=== PATIENT | female | born 1935 | race African-American/Black ===

== ENCOUNTER 2017-02-09 09:30 | Inpatient (IN) | payer MEDICARE, MEDICAID ==
[~2017-02-09] VITALS: Ht 157.5 cm; Wt 69.9 kg
[~2017-02-09 09:30] MED LIST: AMIT-188 GT; DIAZ10TA PO; DOCU-138 PO; ERGO2000 PO; ESOM40CA PO; LOSA25TA3 PO; ROSU10TA PO; SITA100T6 PO; TRAM50TA3 PO
[2017-02-09] MEDS ORDERED: ONDANSETRON HCL 4MG/2ML VIAL IV STA (09:40)
[2017-02-09] MEDS ORDERED: MORPHINE SULFATE 4 MG/ML CPJ (NOT FOR IM USE) IV STA (09:40)
[2017-02-09] MEDS ORDERED: SODIUM CHLORIDE 0.9% 500 ML IV ONE (09:48)
[2017-02-09 10:15] LABS: BASOPHILS % 0.4 % (0.0-2.0); EOSINOPHILS % 0.7 % (0.0-5.0); HEMATOCRIT. 40.9 % (36.0-48.0); HEMOGLOBIN. 13.6 g/dL (12.0-16.0); LYMPHOCYTES % 15.7 % (20.0-50.0); MEAN CORPUSCULAR HEMOGLOBIN 28.7 pg (28.0-32.0); MEAN CORPUSCULAR VOLUME 86.5 fL (81.0-99.0); MEAN PLATELET VOLUME 8.8 fl (7.4-10.4); MONOCYTES % 7.6 % (2.0-8.0); NEUTROPHILS % 75.6 % (40.0-76.0); PLATELET 233 x1000/uL (130-400); RED BLOOD CELL COUNT 4.73 mill/uL (4.2-5.4); RED CELL DISTRIBUTION WIDTH 14.4 % (11.6-14.6)
[2017-02-09 10:21] LABS: INR 1.1; PROTHROMBIN TIME 11.3 sec
[2017-02-09 10:32] LABS: CARBON DIOXIDE 25 mEq/L (21-32); CHLORIDE 101 mEq/L (98-107); TROPONIN I < 0.02 ng/mL (0.00-0.04)
[2017-02-09 12:30] VITALS: BP 131/62
[2017-02-09] MEDS ORDERED: DEXTROSE 50% WATER 50ML SYRINGE IV PRN (14:15)
[2017-02-09] MEDS: DEXT 5%/0.45% NACL 1000ML 1,000 ML IV SCH (15:50)
[2017-02-09 16:00] VITALS: BP 142/82
[2017-02-09] MEDS: KETOROLAC 15MG/ML VIAL IV PRN (16:02)
[2017-02-09] MEDS: BLOOD SUGAR DIAGNOSTIC STRIP TEST SCH ×2 (17:20→21:00)
[2017-02-09] MEDS: INSULIN LISPRO 100 UNITS/ML SUBCUT SCH ×2 (17:40→23:17)
[2017-02-09 20:00] VITALS: BP 102/66
[2017-02-09] MEDS ORDERED: KCL 20MEQ/100ML PREMIX 100 ML IV NR (20:00)
[2017-02-09 21:38] LABS: CLARITY URINE CLEAR (CLEAR); COLOR URINE DARK YELLOW (YELLOW); GLUCOSE URINE NEGATIVE (NEGATIVE); KETONES URINE NEGATIVE (NEGATIVE); LEUKOCYTE ESTERASE URINE NEGATIVE (NEGATIVE); NITRITE URINE NEGATIVE (NEGATIVE); OCCULT BLOOD URINE NEGATIVE (NEGATIVE); PH URINE 5.5 (4.5-8.0); PROTEIN URINE 1+ (NEGATIVE); SPECIFIC GRAVITY URINE 1.025 (1.005-1.030)
[2017-02-09] MEDS: ONDANSETRON HCL 4MG/2ML VIAL IV PRN (23:12)
[2017-02-10] VITALS: BP 115/60
[2017-02-10 04:00] VITALS: BP 145/84
[2017-02-10] MEDS: ONDANSETRON HCL 4MG/2ML VIAL IV PRN ×3 (06:05→19:53)
[2017-02-10] MEDS: KETOROLAC 15MG/ML VIAL IV PRN ×2 (06:05→19:53)
[2017-02-10] MEDS: BLOOD SUGAR DIAGNOSTIC STRIP TEST SCH ×4 (07:24→19:53)
[2017-02-10 07:45] LABS: BASOPHILS % 0.2 % (0.0-2.0); EOSINOPHILS % 0.3 % (0.0-5.0); HEMATOCRIT. 37.6 % (36.0-48.0); HEMOGLOBIN. 12.5 g/dL (12.0-16.0); LYMPHOCYTES % 13.5 % (20.0-50.0); MEAN CORPUSCULAR HEMOGLOBIN 28.7 pg (28.0-32.0); MEAN CORPUSCULAR VOLUME 86.6 fL (81.0-99.0); MEAN PLATELET VOLUME 9.3 fl (7.4-10.4); MONOCYTES % 8.5 % (2.0-8.0); NEUTROPHILS % 77.5 % (40.0-76.0); PLATELET 174 x1000/uL (130-400); RED BLOOD CELL COUNT 4.34 mill/uL (4.2-5.4); RED CELL DISTRIBUTION WIDTH 14.1 % (11.6-14.6)
[2017-02-10 08:00] VITALS: BP 133/77
[2017-02-10] MEDS: INSULIN LISPRO 100 UNITS/ML SUBCUT SCH ×4 (08:09→21:00)
[2017-02-10 08:25] LABS: AMYLASE 114 IU/L (25-115); CARBON DIOXIDE 26 mEq/L (21-32); CHLORIDE 101 mEq/L (98-107); HDL CHOLESTEROL 41 mg/dL (40-59); LDL CHOLESTEROL 96 mg/dL (5-100); TOTAL IRON BINDING CAPACITY 397 ug/dL (250-450)
[2017-02-10 08:33] LABS: T4 FREE 1.04 ng/dL (0.76-1.46)
[2017-02-10] MEDS: PANTOPRAZOLE SODIUM 40 MG/VIAL IV SCH (10:56)
[2017-02-10] MEDS: DEXT 5%/0.45% NACL 1000ML 1,000 ML IV SCH ×2 (10:58→11:40)
[2017-02-10 12:00] VITALS: BP 157/87
[2017-02-10 16:00] VITALS: BP 153/80
[2017-02-10 20:00] VITALS: BP 159/88
[2017-02-10] MEDS: LORAZEPAM 2MG/ML CPJ IV PRN (23:16)
[2017-02-11] VITALS: BP 134/66
[2017-02-11] MEDS: DEXT 5%/0.45% NACL 1000ML 1,000 ML IV SCH ×2 (01:01→07:40)
[2017-02-11 04:00] VITALS: BP 145/79
[2017-02-11 06:35] LABS: BASOPHILS % 0.4 % (0.0-2.0); EOSINOPHILS % 1.2 % (0.0-5.0); HEMATOCRIT. 35.6 % (36.0-48.0); HEMOGLOBIN. 11.9 g/dL (12.0-16.0); LYMPHOCYTES % 20.9 % (20.0-50.0); MEAN CORPUSCULAR VOLUME 87.1 fL (81.0-99.0); MEAN PLATELET VOLUME 8.8 fl (7.4-10.4); MONOCYTES % 10.2 % (2.0-8.0); NEUTROPHILS % 67.3 % (40.0-76.0); PLATELET 183 x1000/uL (130-400); RED BLOOD CELL COUNT 4.09 mill/uL (4.2-5.4); RED CELL DISTRIBUTION WIDTH 13.9 % (11.6-14.6)
[2017-02-11 06:57] LABS: CARBON DIOXIDE 26 mEq/L (21-32); CHLORIDE 103 mEq/L (98-107)
[2017-02-11 07:16] LABS: HEPATITIS B SURFACE ANTIGEN NEGATIVE
[2017-02-11] MEDS: BLOOD SUGAR DIAGNOSTIC STRIP TEST SCH ×4 (07:33→21:00)
[2017-02-11 07:44] LABS: HEPATITIS B CORE AB IGM NEGATIVE
[2017-02-11 07:45] LABS: HEPATITIS A AB IGM NEGATIVE (NEGATIVE)
[2017-02-11] MEDS: INSULIN LISPRO 100 UNITS/ML SUBCUT SCH ×4 (07:50→21:00)
[2017-02-11 08:00] VITALS: BP 148/80
[2017-02-11] MEDS ORDERED: MVI, ADULT NO.1 10 ML, FOLIC ACID 1 MG, THIAMINE HCL 100 MG in SODIUM CHLORIDE 0.9% 1,0... IV NR ×4 (10:00)
[2017-02-11] MEDS ORDERED: MAGNESIUM 4 G PREMIX 100 ML IV NR (10:00)
[2017-02-11] MEDS: KETOROLAC 15MG/ML VIAL IV PRN ×2 (10:41→22:55)
[2017-02-11] MEDS: PANTOPRAZOLE SODIUM 40 MG/VIAL IV SCH (10:43)
[2017-02-11 12:00] VITALS: BP 150/82
[2017-02-11] MEDS ORDERED: POTASSIUM PHOS,M-BASIC-D-BASIC 30 MMOL in DEXT 5% WATER 500 ML IV NR (14:00)
[2017-02-11] MEDS: LORAZEPAM 2MG/ML CPJ IV PRN (14:01)
[2017-02-11 16:00] VITALS: BP 140/85
[2017-02-11 20:00] VITALS: BP 156/81
[2017-02-11] MEDS: ONDANSETRON HCL 4MG/2ML VIAL IV PRN (22:55)
[2017-02-12] VITALS: BP 133/74
[2017-02-12] MEDS: DEXT 5%/0.45% NACL 1000ML 1,000 ML IV SCH ×3 (02:47→23:40)
[2017-02-12 04:00] VITALS: BP 157/71
[2017-02-12] MEDS: BLOOD SUGAR DIAGNOSTIC STRIP TEST SCH ×4 (06:44→21:00)
[2017-02-12] MEDS: INSULIN LISPRO 100 UNITS/ML SUBCUT SCH ×4 (06:46→22:06)
[2017-02-12 06:52] LABS: BASOPHILS % 0.3 % (0.0-2.0); EOSINOPHILS % 1.9 % (0.0-5.0); HEMATOCRIT. 35.9 % (36.0-48.0); HEMOGLOBIN. 11.8 g/dL (12.0-16.0); LYMPHOCYTES % 27.5 % (20.0-50.0); MEAN CORPUSCULAR HEMOGLOBIN 28.5 pg (28.0-32.0); MEAN CORPUSCULAR VOLUME 86.7 fL (81.0-99.0); MEAN PLATELET VOLUME 8.7 fl (7.4-10.4); MONOCYTES % 9.1 % (2.0-8.0); NEUTROPHILS % 61.2 % (40.0-76.0); PLATELET 176 x1000/uL (130-400); RED BLOOD CELL COUNT 4.14 mill/uL (4.2-5.4); RED CELL DISTRIBUTION WIDTH 13.9 % (11.6-14.6)
[2017-02-12 07:44] LABS: CARBON DIOXIDE 26 mEq/L (21-32); CHLORIDE 103 mEq/L (98-107); PHOSPHORUS 2.8 mg/dL (2.5-4.9)
[2017-02-12 08:00] VITALS: BP 163/69
[2017-02-12] MEDS: KETOROLAC 15MG/ML VIAL IV PRN ×2 (10:18→21:55)
[2017-02-12] MEDS: PANTOPRAZOLE SODIUM 40 MG/VIAL IV SCH (10:18)
[2017-02-12 12:00] VITALS: BP 156/81
[2017-02-12] MEDS: KCL 20MEQ/100ML PREMIX 100 ML IV SCH ×2 (14:02→18:59)
[2017-02-12 16:00] VITALS: BP 166/82
[2017-02-12 20:00] VITALS: BP 162/76
[2017-02-13] VITALS: BP 133/73
[2017-02-13 04:00] VITALS: BP 150/73
[2017-02-13] MEDS: BLOOD SUGAR DIAGNOSTIC STRIP TEST SCH ×4 (06:41→21:00)
[2017-02-13 08:00] VITALS: BP 141/73
[2017-02-13] MEDS: PANTOPRAZOLE SODIUM 40 MG/VIAL IV SCH (08:08)
[2017-02-13] MEDS: INSULIN LISPRO 100 UNITS/ML SUBCUT SCH ×4 (08:13→21:00)
[2017-02-13] MEDS: DEXT 5%/0.45% NACL 1000ML 1,000 ML IV SCH (08:19)
[2017-02-13 12:00] VITALS: BP 149/75
[2017-02-13 16:00] VITALS: BP 140/70
[2017-02-13 20:00] VITALS: BP 154/87
[2017-02-13] MEDS: KETOROLAC 15MG/ML VIAL IV PRN (22:41)
[2017-02-14] VITALS: BP 168/78
[2017-02-14 04:00] VITALS: BP 148/88
[2017-02-14] MEDS: DEXT 5%/0.45% NACL 1000ML 1,000 ML IV SCH (05:44)
[2017-02-14 08:00] VITALS: BP 170/86
[2017-02-14] MEDS: BLOOD SUGAR DIAGNOSTIC STRIP TEST SCH ×3 (08:02→12:44)
[2017-02-14] MEDS: INSULIN LISPRO 100 UNITS/ML SUBCUT SCH ×2 (08:56→12:50)
[2017-02-14] MEDS: LORAZEPAM 2MG/ML CPJ IV PRN (08:57)
[2017-02-14] MEDS ORDERED: FAMOTIDINE 20MG/2ML VIAL IV SCH (09:00)
[2017-02-14 12:00] VITALS: BP 161/95
[2017-02-14 16:00] VITALS: BP 163/90
[2017-02-14 16:08] VITALS: BP 161/95
== END 2017-02-14 16:35 | disposition home or self-care (01) | DRG 390 ==
LOC: ER 09:43 → EDBEDREQ 09:45 → 6EST 10:42 → EDBEDREQ 10:46 → ENRESERV 10:55 → ER 12:21
PROVIDERS: ADMIT Specialist; ATTEND Specialist
PROC: 0D9670Z Drainage of Stomach with Drainage Device, Via Natural or Artificial Opening (ICD-10-PCS; principal; 2017-02-10)
PROC: 02HV33Z Insertion of Infusion Device into Superior Vena Cava, Percutaneous Approach (ICD-10-PCS; 2017-02-12)
PROC: B5181ZA Fluoroscopy of Superior Vena Cava using Low Osmolar Contrast, Guidance (ICD-10-PCS; 2017-02-12)
PROC: B548ZZA Ultrasonography of Superior Vena Cava, Guidance (ICD-10-PCS; 2017-02-12)
DX: K56.5 Intestinal adhesions [bands] with obstruction (postinfection) (principal); K56.0 Paralytic ileus; K66.0 Peritoneal adhesions (postprocedural) (postinfection); F41.1 Generalized anxiety disorder; E86.0 Dehydration; K57.90 Diverticulosis of intestine, part unspecified, without perforation or abscess without bleeding; E11.9 Type 2 diabetes mellitus without complications; I11.9 Hypertensive heart disease without heart failure; Z96.653 Presence of artificial knee joint, bilateral; F32.9 Major depressive disorder, single episode, unspecified; M19.90 Unspecified osteoarthritis, unspecified site; Z90.710 Acquired absence of both cervix and uterus; Z85.3 Personal history of malignant neoplasm of breast; Z95.0 Presence of cardiac pacemaker; Z88.8 Allergy status to other drugs, medicaments and biological substances; Z79.84 Long term (current) use of oral hypoglycemic drugs; Z88.5 Allergy status to narcotic agent; Z90.49 Acquired absence of other specified parts of digestive tract; Z79.899 Other long term (current) drug therapy; Z88.6 Allergy status to analgesic agent; E87.6 Hypokalemia
CPT/HCPCS: 36415; 36569; 71010; 74000; 74176; 76937; 77001; 80053; 80061; 80069; 80076; 81001; 82150; 82248; 82378; 82962; 83036; 83540; 83550; 83605; 83690; 83735; 83880; 84100; 84439; 84443; 84484; 84550; 85025; 85610; 85651; 86705; 86709; 86803; 87040; 87086; 87340; 93005; 93970; 96361; 96374; 96375; 99291; C1725; C1893; C9113; J1815; J1885; J2060; J2405; J3411; J3475; J3480; J3490; J7030; J7040; J7060; A4315

== ENCOUNTER 2017-03-06 08:24 | Inpatient (IN) | payer MEDICARE, MEDICAID ==
[~2017-03-06] VITALS: Ht 152.4 cm; Wt 64.9 kg
[~2017-03-06 08:24] MED LIST changes: +IOHEXOL-300 100 ML BOTTLE ONE; +SITA100T11 PO; -SITA100T6 PO; +SODIUM CHLORIDE 0.9% 10ML VIAL ONE
[2017-03-06] MEDS ORDERED: MORPHINE SULFATE 4 MG/ML CPJ (NOT FOR IM USE) IV STA (08:38)
[2017-03-06] MEDS ORDERED: SODIUM CHLORIDE 0.9% 1,000 ML IV ONE (08:38)
[2017-03-06] MEDS ORDERED: ONDANSETRON HCL 4MG/2ML VIAL IV STA (08:38)
[2017-03-06 08:57] LABS: BASOPHILS % 0.4 % (0.0-2.0); EOSINOPHILS % 0.3 % (0.0-5.0); HEMATOCRIT. 39.2 % (36.0-48.0); LYMPHOCYTES % 9.7 % (20.0-50.0); MEAN CORPUSCULAR HEMOGLOBIN 28.6 pg (28.0-32.0); MEAN CORPUSCULAR VOLUME 86.1 fL (81.0-99.0); MEAN PLATELET VOLUME 8.5 fl (7.4-10.4); MONOCYTES % 3.7 % (2.0-8.0); NEUTROPHILS % 85.9 % (40.0-76.0); PLATELET 242 x1000/uL (130-400); RED BLOOD CELL COUNT 4.56 mill/uL (4.2-5.4); RED CELL DISTRIBUTION WIDTH 14.9 % (11.6-14.6)
[2017-03-06 09:05] LABS: INR 1.1; PROTHROMBIN TIME 11.2 sec (9.4-11.6)
[2017-03-06 09:15] LABS: CARBON DIOXIDE 26 mEq/L (21-32); CHLORIDE 101 mEq/L (98-107); TROPONIN I < 0.02 ng/mL (0.00-0.04)
[2017-03-06] MEDS ORDERED: KCL 20MEQ/100ML PREMIX 100 ML IV ONE (11:30)
[2017-03-06 12:07] LABS: CLARITY URINE CLEAR (CLEAR); COLOR URINE YELLOW (YELLOW); GLUCOSE URINE NEGATIVE (NEGATIVE); KETONES URINE NEGATIVE (NEGATIVE); LEUKOCYTE ESTERASE URINE 1+ (NEGATIVE); NITRITE URINE POSITIVE (NEGATIVE); OCCULT BLOOD URINE TRACE (NEGATIVE); PROTEIN URINE TRACE (NEGATIVE); SPECIFIC GRAVITY URINE 1.084 (1.005-1.030)
[2017-03-06] MEDS ORDERED: ONDANSETRON HCL 4MG/2ML VIAL IV ONE (14:00)
[2017-03-06 15:05] VITALS: BP 149/72
[2017-03-06 15:46] VITALS: BP 149/72
[2017-03-06] MEDS ORDERED: LABETALOL 5MG/ML SYR 20 MG/4 ML SYRINGE IV PRN (16:45)
[2017-03-06] MEDS ORDERED: DEXTROSE 50% WATER 50ML SYRINGE IV PRN (16:45)
[2017-03-06] MEDS: BLOOD SUGAR DIAGNOSTIC STRIP TEST SCH ×2 (17:00→20:10)
[2017-03-06] MEDS: INSULIN LISPRO 100 UNITS/ML SUBCUT SCH ×2 (18:20→20:20)
[2017-03-06 20:00] VITALS: BP 154/72
[2017-03-06] MEDS: DEXT 5%/0.45% NACL KCL 20MEQ/L 1,000 ML IV SCH (20:00)
[2017-03-06] MEDS: KETOROLAC 15MG/ML VIAL IV PRN (20:01)
[2017-03-07] VITALS: BP 148/70
[2017-03-07] MEDS: LEVOFLOXACIN 500MG PREMIX 100 ML IV SCH (05:37)
[2017-03-07 06:00] VITALS: BP 151/73
[2017-03-07] MEDS: BLOOD SUGAR DIAGNOSTIC STRIP TEST SCH ×4 (06:05→20:45)
[2017-03-07] MEDS: KETOROLAC 15MG/ML VIAL IV PRN ×3 (06:22→23:21)
[2017-03-07] MEDS: INSULIN LISPRO 100 UNITS/ML SUBCUT SCH ×4 (06:22→20:51)
[2017-03-07 06:25] LABS: BASOPHILS % 0.3 % (0.0-2.0); EOSINOPHILS % 1.7 % (0.0-5.0); HEMATOCRIT. 32.9 % (36.0-48.0); HEMOGLOBIN. 10.9 g/dL (12.0-16.0); LYMPHOCYTES % 32.8 % (20.0-50.0); MEAN CORPUSCULAR HEMOGLOBIN 28.8 pg (28.0-32.0); MEAN CORPUSCULAR VOLUME 86.6 fL (81.0-99.0); MEAN PLATELET VOLUME 8.6 fl (7.4-10.4); MONOCYTES % 7.5 % (2.0-8.0); NEUTROPHILS % 57.7 % (40.0-76.0); PLATELET 180 x1000/uL (130-400); RED CELL DISTRIBUTION WIDTH 14.9 % (11.6-14.6)
[2017-03-07 06:43] LABS: AMYLASE 50 IU/L (25-115); CHLORIDE 103 mEq/L (98-107)
[2017-03-07 07:05] LABS: CARBON DIOXIDE 30 mEq/L (21-32)
[2017-03-07 08:00] VITALS: BP_SYST 102; BP_SYST 121; BP_DIAS 79; BP_DIAS 84
[2017-03-07 08:59] LABS: *AMPHETAMINES SCREEN URINE NEGATIVE (NEGATIVE); *BARBITURATES SCREEN URINE NEGATIVE (NEGATIVE); *BENZODIAZEPINES SCREEN URINE PRESUMTIVE POSITIVE (NEGATIVE); *COCAINE SCREEN URINE NEGATIVE (NEGATIVE); CANNABINOID URINE SCREEN NEGATIVE (NEGATIVE); METHADONE URINE SCREEN NEGATIVE (NEGATIVE); OPIATES URINE SCREEN PRESUMTIVE POSITIVE (NEGATIVE); PHENCYCLIDINE URINE SCREEN NEGATIVE (NEGATIVE)
[2017-03-07] MEDS: PANTOPRAZOLE SODIUM 40 MG/VIAL IV SCH (10:11)
[2017-03-07 12:00] VITALS: BP 147/71
[2017-03-07] MEDS: DEXT 5%/0.45% NACL KCL 20MEQ/L 1,000 ML IV SCH (14:34)
[2017-03-07 16:00] VITALS: BP 146/62
[2017-03-07 20:00] VITALS: BP 160/72
[2017-03-08] VITALS: BP 155/62
[2017-03-08] MEDS: LEVOFLOXACIN 500MG PREMIX 100 ML IV SCH (01:16)
[2017-03-08] MEDS: LORAZEPAM 2MG/ML CPJ IV PRN (01:24)
[2017-03-08 04:00] VITALS: BP 159/80
[2017-03-08] MEDS: DEXT 5%/0.45% NACL KCL 20MEQ/L 1,000 ML IV SCH ×2 (05:32→12:56)
[2017-03-08] MEDS: INSULIN LISPRO 100 UNITS/ML SUBCUT SCH ×4 (06:46→21:00)
[2017-03-08] MEDS: BLOOD SUGAR DIAGNOSTIC STRIP TEST SCH ×4 (06:46→21:34)
[2017-03-08 08:00] VITALS: BP 158/81
[2017-03-08] MEDS: PANTOPRAZOLE SODIUM 40 MG/VIAL IV SCH (09:32)
[2017-03-08] MEDS: ONDANSETRON HCL 4MG/2ML VIAL IV PRN (09:32)
[2017-03-08 16:00] VITALS: BP 148/76
[2017-03-08 20:00] VITALS: BP 157/78
[2017-03-09] VITALS: BP 149/79
[2017-03-09] MEDS: LEVOFLOXACIN 500MG PREMIX 100 ML IV SCH (01:46)
[2017-03-09] MEDS: DEXT 5%/0.45% NACL KCL 20MEQ/L 1,000 ML IV SCH (01:46)
[2017-03-09 04:00] VITALS: BP 149/79
[2017-03-09] MEDS: BLOOD SUGAR DIAGNOSTIC STRIP TEST SCH ×4 (06:52→21:13)
[2017-03-09] MEDS: ONDANSETRON HCL 4MG/2ML VIAL IV PRN (06:53)
[2017-03-09] MEDS: INSULIN LISPRO 100 UNITS/ML SUBCUT SCH ×4 (06:57→21:00)
[2017-03-09] MEDS: FAMOTIDINE 20MG/2ML VIAL IV SCH (08:26)
[2017-03-09 08:37] VITALS: BP 137/72
[2017-03-09 12:00] VITALS: BP 171/79
[2017-03-09 16:00] VITALS: BP 149/63
[2017-03-09] MEDS ORDERED: AMLO10TA4 PO (16:21)
[2017-03-09 20:00] VITALS: BP 139/72
[2017-03-10] VITALS: BP 141/67
[2017-03-10] MEDS: LEVOFLOXACIN 500MG PREMIX 100 ML IV SCH (02:15)
[2017-03-10 04:00] VITALS: BP 108/63
[2017-03-10 04:44] LABS: CLARITY URINE CLEAR (CLEAR); COLOR URINE YELLOW (YELLOW); GLUCOSE URINE NEGATIVE (NEGATIVE); KETONES URINE NEGATIVE (NEGATIVE); LEUKOCYTE ESTERASE URINE TRACE (NEGATIVE); NITRITE URINE NEGATIVE (NEGATIVE); OCCULT BLOOD URINE NEGATIVE (NEGATIVE); PROTEIN URINE NEGATIVE (NEGATIVE); SPECIFIC GRAVITY URINE 1.008 (1.005-1.030)
[2017-03-10] MEDS: BLOOD SUGAR DIAGNOSTIC STRIP TEST SCH ×4 (06:09→21:33)
[2017-03-10] MEDS: INSULIN LISPRO 100 UNITS/ML SUBCUT SCH ×4 (06:09→21:00)
[2017-03-10] MEDS: LORAZEPAM 2MG/ML CPJ IV PRN ×2 (06:10→23:18)
[2017-03-10 06:24] LABS: BASOPHILS % 0.4 % (0.0-2.0); HEMATOCRIT. 37.7 % (36.0-48.0); HEMOGLOBIN. 12.6 g/dL (12.0-16.0); LYMPHOCYTES % 33.2 % (20.0-50.0); MEAN CORPUSCULAR HEMOGLOBIN 28.6 pg (28.0-32.0); MEAN CORPUSCULAR VOLUME 85.9 fL (81.0-99.0); MEAN PLATELET VOLUME 8.3 fl (7.4-10.4); MONOCYTES % 9.6 % (2.0-8.0); NEUTROPHILS % 54.8 % (40.0-76.0); PLATELET 202 x1000/uL (130-400); RED BLOOD CELL COUNT 4.39 mill/uL (4.2-5.4); RED CELL DISTRIBUTION WIDTH 15.1 % (11.6-14.6)
[2017-03-10] MEDS ORDERED: KETOROLAC 15MG/ML VIAL IV PRN (07:15)
[2017-03-10 07:18] LABS: CARBON DIOXIDE 28 mEq/L (21-32); CHLORIDE 101 mEq/L (98-107); PHOSPHORUS 3.7 mg/dL (2.5-4.9)
[2017-03-10 07:19] VITALS: BP 160/84
[2017-03-10] MEDS ORDERED: LOSARTAN POTASSIUM 25 MG TABLET PO SCH (09:00)
[2017-03-10] MEDS: FAMOTIDINE 20MG/2ML VIAL IV SCH (09:08)
[2017-03-10] MEDS: AMLODIPINE 10MG TABLET PO SCH (09:09)
[2017-03-10] MEDS ORDERED: MAGNESIUM 4 G PREMIX 100 ML IV SCH (11:00)
[2017-03-10] MEDS ORDERED: POTASSIUM BICARB/CIT ACID 25 MEQ TABLET.EFF PO SCH (11:00)
[2017-03-10 11:40] VITALS: BP 172/74
[2017-03-10] MEDS ORDERED: FUROSEMIDE 20MG/2ML VIAL IVP SCH (13:15)
[2017-03-10 15:15] VITALS: BP 135/69
[2017-03-10 20:00] VITALS: BP 155/81
[2017-03-10] MEDS: LOSARTAN POTASSIUM 50 MG TABLET PO SCH (21:35)
[2017-03-11] VITALS: BP 115/73
[2017-03-11 04:00] VITALS: BP 116/61
[2017-03-11] MEDS: LEVOFLOXACIN 250MG PREMIX 50 ML IV SCH (05:36)
[2017-03-11] MEDS: INSULIN LISPRO 100 UNITS/ML SUBCUT SCH ×4 (05:41→21:00)
[2017-03-11] MEDS: BLOOD SUGAR DIAGNOSTIC STRIP TEST SCH ×4 (05:41→21:01)
[2017-03-11] MEDS ORDERED: BISACODYL 10MG SUPP PR PRN (06:15)
[2017-03-11 06:29] LABS: BASOPHILS % 0.6 % (0.0-2.0); EOSINOPHILS % 1.3 % (0.0-5.0); HEMATOCRIT. 37.3 % (36.0-48.0); HEMOGLOBIN. 12.4 g/dL (12.0-16.0); LYMPHOCYTES % 24.8 % (20.0-50.0); MEAN CORPUSCULAR HEMOGLOBIN 28.5 pg (28.0-32.0); MEAN CORPUSCULAR VOLUME 86.1 fL (81.0-99.0); MEAN PLATELET VOLUME 8.6 fl (7.4-10.4); NEUTROPHILS % 65.3 % (40.0-76.0); PLATELET 215 x1000/uL (130-400); RED BLOOD CELL COUNT 4.34 mill/uL (4.2-5.4); RED CELL DISTRIBUTION WIDTH 14.9 % (11.6-14.6)
[2017-03-11 06:45] LABS: CARBON DIOXIDE 28 mEq/L (21-32); CHLORIDE 96 mEq/L (98-107); PHOSPHORUS 3.9 mg/dL (2.5-4.9)
[2017-03-11] MEDS ORDERED: BISACODYL 10MG SUPP PR SCH (07:00)
[2017-03-11 08:00] VITALS: BP 116/45
[2017-03-11] MEDS: FAMOTIDINE 20MG/2ML VIAL IV SCH (08:58)
[2017-03-11] MEDS: AMLODIPINE 10MG TABLET PO SCH (08:59)
[2017-03-11] MEDS: LOSARTAN POTASSIUM 50 MG TABLET PO SCH ×2 (08:59→20:58)
[2017-03-11 12:00] VITALS: BP 121/56
[2017-03-11] MEDS: BISACODYL 10MG SUPP PR SCH ×2 (12:00→16:00)
[2017-03-11 16:00] VITALS: BP 117/66
[2017-03-11 20:00] VITALS: BP 145/78
[2017-03-11] MEDS ORDERED: POTASSIUM BICARB/CIT ACID 25 MEQ TABLET.EFF PO NR ×2 (20:00→23:59)
[2017-03-11] MEDS: LORAZEPAM 2MG/ML CPJ IV PRN (21:44)
[2017-03-12] VITALS: BP 121/63
[2017-03-12 04:00] VITALS: BP 110/62
[2017-03-12] MEDS: LEVOFLOXACIN 250MG PREMIX 50 ML IV SCH (05:59)
[2017-03-12] MEDS: BLOOD SUGAR DIAGNOSTIC STRIP TEST SCH ×4 (06:05→21:27)
[2017-03-12] MEDS: INSULIN LISPRO 100 UNITS/ML SUBCUT SCH ×3 (06:43→17:15)
[2017-03-12] MEDS: ONDANSETRON HCL 4MG/2ML VIAL IV PRN (06:49)
[2017-03-12 08:10] VITALS: BP 125/52
[2017-03-12] MEDS: AMLODIPINE 10MG TABLET PO SCH (09:00)
[2017-03-12] MEDS: LOSARTAN POTASSIUM 50 MG TABLET PO SCH ×2 (09:01→21:07)
[2017-03-12] MEDS: FAMOTIDINE 20MG/2ML VIAL IV SCH (09:01)
[2017-03-12] MEDS: LORAZEPAM 2MG/ML CPJ IV PRN ×2 (09:56→21:59)
[2017-03-12 12:00] VITALS: BP 110/67
[2017-03-12 16:00] VITALS: BP 134/74
[2017-03-13] MEDS: LEVOFLOXACIN 250MG PREMIX 50 ML IV SCH (06:51)
[2017-03-13 08:00] VITALS: BP 138/73
[2017-03-13] MEDS: LOSARTAN POTASSIUM 50 MG TABLET PO SCH ×2 (09:16→20:29)
[2017-03-13] MEDS: AMLODIPINE 10MG TABLET PO SCH (09:16)
[2017-03-13] MEDS: FAMOTIDINE 20MG/2ML VIAL IV SCH (09:16)
[2017-03-13] MEDS: INSULIN LISPRO 100 UNITS/ML SUBCUT SCH ×3 (11:20→20:33)
[2017-03-13] MEDS: BLOOD SUGAR DIAGNOSTIC STRIP TEST SCH ×3 (11:20→20:29)
[2017-03-13 12:00] VITALS: BP 136/81
[2017-03-13 15:48] VITALS: BP 128/77
[2017-03-13 20:00] VITALS: BP 133/69
[2017-03-13] MEDS: LORAZEPAM 2MG/ML CPJ IV PRN (21:56)
[2017-03-14] VITALS: BP 118/66
[2017-03-14 04:00] VITALS: BP 140/65
[2017-03-14] MEDS: BLOOD SUGAR DIAGNOSTIC STRIP TEST SCH ×2 (05:56→11:26)
[2017-03-14] MEDS: LEVOFLOXACIN 250MG PREMIX 50 ML IV SCH (05:56)
[2017-03-14] MEDS: INSULIN LISPRO 100 UNITS/ML SUBCUT SCH ×2 (06:00→11:26)
[2017-03-14 06:25] LABS: CARBON DIOXIDE 29 mEq/L (21-32); CHLORIDE 98 mEq/L (98-107); PHOSPHORUS 3.8 mg/dL (2.5-4.9)
[2017-03-14 06:29] LABS: BASOPHILS % 0.5 % (0.0-2.0); EOSINOPHILS % 2.3 % (0.0-5.0); HEMATOCRIT. 38.5 % (36.0-48.0); HEMOGLOBIN. 12.6 g/dL (12.0-16.0); LYMPHOCYTES % 42.8 % (20.0-50.0); MEAN CORPUSCULAR HEMOGLOBIN 28.5 pg (28.0-32.0); MEAN PLATELET VOLUME 8.6 fl (7.4-10.4); NEUTROPHILS % 44.4 % (40.0-76.0); PLATELET 197 x1000/uL (130-400); RED BLOOD CELL COUNT 4.43 mill/uL (4.2-5.4); RED CELL DISTRIBUTION WIDTH 14.9 % (11.6-14.6)
[2017-03-14 07:55] VITALS: BP 152/71
[2017-03-14] MEDS: LOSARTAN POTASSIUM 50 MG TABLET PO SCH (09:13)
[2017-03-14] MEDS: AMLODIPINE 10MG TABLET PO SCH (09:14)
[2017-03-14] MEDS: FAMOTIDINE 20MG/2ML VIAL IV SCH (09:14)
[2017-03-14 11:32] VITALS: BP 142/73
[2017-03-14 12:00] VITALS: BP 139/72
[2017-03-14] MEDS ORDERED: POTASSIUM BICARB/CIT ACID 25 MEQ TABLET.EFF PO SCH (12:30)
== END 2017-03-14 13:00 | disposition home health service (06) | DRG 389 ==
LOC: ER 08:24 → 5WST 11:21 → EDBEDREQ 11:22 → ENRESERV 11:45
PROVIDERS: ADMIT Internal Medicine; ATTEND Internal Medicine
DX: K56.5 Intestinal adhesions [bands] with obstruction (postinfection) (principal); N39.0 Urinary tract infection, site not specified; I11.9 Hypertensive heart disease without heart failure; R16.0 Hepatomegaly, not elsewhere classified; E11.9 Type 2 diabetes mellitus without complications; E87.6 Hypokalemia; Z96.659 Presence of unspecified artificial knee joint; M19.90 Unspecified osteoarthritis, unspecified site; R63.4 Abnormal weight loss; F32.9 Major depressive disorder, single episode, unspecified; F41.0 Panic disorder [episodic paroxysmal anxiety]; I25.10 Atherosclerotic heart disease of native coronary artery without angina pectoris; K57.30 Diverticulosis of large intestine without perforation or abscess without bleeding; Z79.899 Other long term (current) drug therapy; Z85.3 Personal history of malignant neoplasm of breast; Z90.49 Acquired absence of other specified parts of digestive tract; Z90.710 Acquired absence of both cervix and uterus; Z79.84 Long term (current) use of oral hypoglycemic drugs; Z88.8 Allergy status to other drugs, medicaments and biological substances; Z88.6 Allergy status to analgesic agent; Z68.27 Body mass index [BMI] 27.0-27.9, adult
CPT/HCPCS: 36415; 71010; 74000; 74177; 80048; 80053; 80069; 80305; 81001; 82150; 82248; 82962; 83690; 83735; 83880; 84100; 84443; 84484; 84550; 85025; 85610; 85651; 87077; 87086; 87186; 93005; 93970; 96374; 96375; 99285; A4216; A6261; C1893; C9113; J1885; J1940; J1956; J2060; J2270; J2405; J3475; J3480; J3490; J7030; J7050; Q9967

== ENCOUNTER 2017-04-16 10:32 | Inpatient (IN) | payer MEDICARE, MEDICAID ==
[~2017-04-16] VITALS: Ht 162.6 cm; Wt 68.0 kg
[~2017-04-16 10:32] MED LIST changes: +AMLO10TA4 PO; -IOHEXOL-300 100 ML BOTTLE ONE; -SODIUM CHLORIDE 0.9% 10ML VIAL ONE
[2017-04-16] MEDS ORDERED: MORPHINE SULFATE 4 MG/ML CPJ (NOT FOR IM USE) IV STA (11:06)
[2017-04-16] MEDS ORDERED: ONDANSETRON HCL 4MG/2ML VIAL IV STA (11:06)
[2017-04-16] MEDS ORDERED: SODIUM CHLORIDE 0.9% 1,000 ML IV ONE (11:06)
[2017-04-16 11:33] LABS: BASOPHILS % 0.7 % (0.0-2.0); EOSINOPHILS % 1.6 % (0.0-5.0); HEMATOCRIT. 35.6 % (36.0-48.0); HEMOGLOBIN. 11.8 g/dL (12.0-16.0); LYMPHOCYTES % 24.7 % (20.0-50.0); MEAN CORPUSCULAR HEMOGLOBIN 28.5 pg (28.0-32.0); MEAN PLATELET VOLUME 8.2 fl (7.4-10.4); MONOCYTES % 6.2 % (2.0-8.0); NEUTROPHILS % 66.8 % (40.0-76.0); PLATELET 235 x1000/uL (130-400); RED BLOOD CELL COUNT 4.14 mill/uL (4.2-5.4); RED CELL DISTRIBUTION WIDTH 14.7 % (11.6-14.6)
[2017-04-16 11:42] LABS: INR 1.1; PARTIAL THROMBOPLASTIN TIME 30.1 sec (23.4-31.0); PROTHROMBIN TIME 11.4 sec (9.4-11.6)
[2017-04-16 11:49] LABS: CARBON DIOXIDE 31 mEq/L (21-32); CHLORIDE 102 mEq/L (98-107); TROPONIN I < 0.02 ng/mL (0.00-0.04)
[2017-04-16 13:15] LABS: CLARITY URINE CLEAR (CLEAR); COLOR URINE YELLOW (YELLOW); GLUCOSE URINE NEGATIVE (NEGATIVE); KETONES URINE NEGATIVE (NEGATIVE); LEUKOCYTE ESTERASE URINE 2+ (NEGATIVE); NITRITE URINE NEGATIVE (NEGATIVE); OCCULT BLOOD URINE NEGATIVE (NEGATIVE); PROTEIN URINE NEGATIVE (NEGATIVE); SPECIFIC GRAVITY URINE 1.012 (1.005-1.030); UROBILINOGEN URINE 0.2 E.U./dL (0.2-1.0)
[2017-04-16] MEDS ORDERED: MORPHINE SULFATE 2 MG/ML CPJ (NOT FOR IM USE) IV PRN (18:00)
[2017-04-16] MEDS ORDERED: MAGNESIUM HYDROXIDE 400MG/5ML 30ML UDC PO PRN (18:00)
[2017-04-16] MEDS ORDERED: ACETAMINOPHEN 325MG TABLET PO PRN (18:00)
[2017-04-16] MEDS ORDERED: ERGOCALCIFEROL PO SCH (18:15)
[2017-04-16] MEDS ORDERED: DOCUSATE SODIUM 100MG CAPSULE PO PRN (18:15)
[2017-04-16] MEDS ORDERED: DIAZEPAM 10 MG PO PRN (18:15)
[2017-04-16] MEDS ORDERED: TRAMADOL 50MG TABLET PO PRN (18:15)
[2017-04-16] MEDS ORDERED: DEXTROSE 50% WATER 50ML SYRINGE IV PRN (18:15)
[2017-04-16] MEDS ORDERED: DIAZEPAM 5 MG TABLET PO PRN (18:30)
[2017-04-16 18:41] VITALS: BP 150/72
[2017-04-16] MEDS: AMLODIPINE 10MG TABLET PO SCH (19:35)
[2017-04-16] MEDS: LOSARTAN POTASSIUM 25 MG TABLET PO SCH (19:35)
[2017-04-16 20:05] VITALS: BP 111/51
[2017-04-16] MEDS: BLOOD SUGAR DIAGNOSTIC STRIP TEST SCH (20:55)
[2017-04-16] MEDS: ATORVASTATIN CALCIUM 20MG TABLET PO SCH (20:56)
[2017-04-16] MEDS: AMITRIPTYLINE 50MG TABLET GT SCH (20:57)
[2017-04-16] MEDS ORDERED: MEDICATION NOT ON FORMULARY EA (Sitagliptin Phosphate (Januvia) 100 MG) PO SCH (21:00)
[2017-04-16] MEDS ORDERED: MEDICATION NOT ON FORMULARY EA (Rosuvastatin Calcium (Crestor) 10 MG) PO SCH (21:00)
[2017-04-16] MEDS: INSULIN LISPRO 100 UNITS/ML SUBCUT SCH (21:17)
[2017-04-16] MEDS: MORPHINE SULFATE 4 MG/ML CPJ (NOT FOR IM USE) IV PRN (21:56)
[2017-04-17 00:11] VITALS: BP 133/62
[2017-04-17 04:22] VITALS: BP 139/64
[2017-04-17] MEDS: BLOOD SUGAR DIAGNOSTIC STRIP TEST SCH ×4 (07:45→21:47)
[2017-04-17 07:46] VITALS: BP 140/59
[2017-04-17] MEDS: INSULIN LISPRO 100 UNITS/ML SUBCUT SCH ×5 (07:50→21:56)
[2017-04-17] MEDS ORDERED: MEDICATION NOT ON FORMULARY EA (Esomeprazole Mag Trihydrate (Nexium) 40 MG) PO SCH (09:00)
[2017-04-17] MEDS: LOSARTAN POTASSIUM 25 MG TABLET PO SCH (10:27)
[2017-04-17] MEDS: AMLODIPINE 10MG TABLET PO SCH (10:28)
[2017-04-17] MEDS: FAMOTIDINE 20MG TABLET PO SCH (10:28)
[2017-04-17] MEDS: MORPHINE SULFATE 4 MG/ML CPJ (NOT FOR IM USE) IV PRN (10:29)
[2017-04-17] MEDS: LINAGLIPTIN 5MG TABLET PO SCH (11:08)
[2017-04-17 12:19] VITALS: BP 138/65
[2017-04-17 15:20] VITALS: BP 98/50
[2017-04-17 20:43] VITALS: BP 121/54
[2017-04-17] MEDS: ATORVASTATIN CALCIUM 20MG TABLET PO SCH (21:49)
[2017-04-17] MEDS: AMITRIPTYLINE 50MG TABLET GT SCH (21:56)
[2017-04-18] VITALS (8 sets, daily range): BP systolic 122–138; BP diastolic 64–80
[2017-04-18] MEDS: BLOOD SUGAR DIAGNOSTIC STRIP TEST SCH ×4 (06:16→21:42)
[2017-04-18] MEDS: FAMOTIDINE 20MG TABLET PO SCH (08:24)
[2017-04-18] MEDS: AMLODIPINE 10MG TABLET PO SCH (08:25)
[2017-04-18] MEDS: LINAGLIPTIN 5MG TABLET PO SCH (08:25)
[2017-04-18] MEDS: LOSARTAN POTASSIUM 25 MG TABLET PO SCH (08:25)
[2017-04-18] MEDS: DIPHENHYDRAMINE 25MG CAPSULE PO PRN (08:28)
[2017-04-18] MEDS: INSULIN LISPRO 100 UNITS/ML SUBCUT SCH ×3 (11:40→21:00)
[2017-04-18] MEDS: AMITRIPTYLINE 50MG TABLET GT SCH (21:26)
[2017-04-18] MEDS: ATORVASTATIN CALCIUM 20MG TABLET PO SCH (21:26)
[2017-04-18] MEDS: MORPHINE SULFATE 4 MG/ML CPJ (NOT FOR IM USE) IV PRN (21:28)
[2017-04-19] VITALS: BP 109/50
[2017-04-19] MEDS: DIPHENHYDRAMINE 25MG CAPSULE PO PRN (00:26)
[2017-04-19 04:00] VITALS: BP 134/59
[2017-04-19 07:06] LABS: BASOPHILS % 0.6 % (0.0-2.0); HEMATOCRIT. 34.3 % (36.0-48.0); HEMOGLOBIN. 11.5 g/dL (12.0-16.0); LYMPHOCYTES % 37.4 % (20.0-50.0); MEAN CORPUSCULAR HEMOGLOBIN 28.7 pg (28.0-32.0); MEAN CORPUSCULAR VOLUME 85.9 fL (81.0-99.0); MEAN PLATELET VOLUME 8.4 fl (7.4-10.4); MONOCYTES % 8.8 % (2.0-8.0); NEUTROPHILS % 51.2 % (40.0-76.0); PLATELET 212 x1000/uL (130-400); RED CELL DISTRIBUTION WIDTH 14.1 % (11.6-14.6)
[2017-04-19] MEDS: BLOOD SUGAR DIAGNOSTIC STRIP TEST SCH (07:07)
[2017-04-19] MEDS: INSULIN LISPRO 100 UNITS/ML SUBCUT SCH (07:08)
[2017-04-19 07:54] VITALS: BP 135/58
[2017-04-19 07:58] LABS: CARBON DIOXIDE 28 mEq/L (21-32); CHLORIDE 103 mEq/L (98-107)
[2017-04-19] MEDS: LOSARTAN POTASSIUM 25 MG TABLET PO SCH (08:40)
[2017-04-19] MEDS: LINAGLIPTIN 5MG TABLET PO SCH (08:40)
[2017-04-19] MEDS: FAMOTIDINE 20MG TABLET PO SCH (08:40)
[2017-04-19] MEDS: AMLODIPINE 10MG TABLET PO SCH (08:40)
[2017-04-19] MEDS ORDERED: ERGOCALCIFEROL 50000UNITS CAPSULE PO SCH (09:00)
[2017-04-19] MEDS ORDERED: POTASSIUM CHLORIDE 20MEQ TABLET SR PO NR (09:06)
[2017-04-19 10:31] VITALS: BP 135/58
== END 2017-04-19 12:10 | disposition home or self-care (01) | DRG 605 ==
LOC: ER 10:32 → 6WST 12:55 → EDBEDREQTM 12:58 → EDBEDREQ 12:58 → ENRESERV 16:10
PROVIDERS: ADMIT Specialist; ATTEND Specialist
DX: S20.219A Contusion of unspecified front wall of thorax, initial encounter (principal); S27.329A Contusion of lung, unspecified, initial encounter; E11.9 Type 2 diabetes mellitus without complications; Z96.653 Presence of artificial knee joint, bilateral; W01.0XXA Fall on same level from slipping, tripping and stumbling without subsequent striking against object, initial encounter; I10 Essential (primary) hypertension; Z85.3 Personal history of malignant neoplasm of breast; Z86.73 Personal history of transient ischemic attack (TIA), and cerebral infarction without residual deficits; Z90.49 Acquired absence of other specified parts of digestive tract; Z95.0 Presence of cardiac pacemaker; Z88.5 Allergy status to narcotic agent; Z88.8 Allergy status to other drugs, medicaments and biological substances; Y93.89 Activity, other specified; Y92.041 Bathroom in boarding-house as the place of occurrence of the external cause
CPT/HCPCS: 36415; 71010; 71100; 80048; 80053; 81001; 82962; 83690; 83880; 84484; 85025; 85610; 85730; 87040; 87086; 93005; 93970; 96361; 96374; 96375; 97110; 97116; 97162; 99285; J1815; J2270; J2405; J7030; Q0163

== ENCOUNTER 2018-06-11 14:28 | Inpatient (IN) | payer MEDICARE, MEDICAID ==
[~2018-06-11] VITALS: Ht 162.6 cm; Wt 68.9 kg
[~2018-06-11 14:28] MED LIST changes: -DIAZ10TA PO; -ESOM40CA PO; +MONT10TA24 PO; -ROSU10TA PO; +SERT25TA74 PO
[2018-06-11] MEDS ORDERED: ONDANSETRON HCL 4MG/2ML INJ IV STA (14:49)
[2018-06-11] MEDS ORDERED: MORPHINE SULFATE 4 MG/ML CPJ (NOT FOR IM USE) IV STA (14:49)
[2018-06-11] MEDS ORDERED: SODIUM CHLORIDE 0.9% 1,000 ML IV ONE (14:49)
[2018-06-11 15:28] LABS: CHLORIDE 106 mEq/L (98-107)
[2018-06-11 15:29] LABS: INR 1.1; PROTHROMBIN TIME 10.9 sec (9.1-11.1)
[2018-06-11 15:35] LABS: CLARITY URINE CLEAR (CLEAR); COLOR URINE YELLOW (YELLOW); KETONES URINE NEGATIVE (NEGATIVE); LEUKOCYTE ESTERASE URINE 2+ (NEGATIVE); NITRITE URINE NEGATIVE (NEGATIVE); OCCULT BLOOD URINE NEGATIVE (NEGATIVE); PROTEIN URINE NEGATIVE (NEGATIVE); SPECIFIC GRAVITY URINE 1.014 (1.005-1.030); UROBILINOGEN URINE 0.2 E.U./dL (0.2-1.0)
[2018-06-11 15:36] LABS: BASOPHILS % 0.3 % (0.0-2.0); HEMATOCRIT. 35.6 % (36.0-48.0); HEMOGLOBIN. 12.1 g/dL (12.0-16.0); LYMPHOCYTES % 29.8 % (20.0-50.0); MEAN CORPUSCULAR HEMOGLOBIN 30.4 pg (28.0-32.0); MEAN CORPUSCULAR VOLUME 89.3 fL (81.0-99.0); MEAN PLATELET VOLUME 8.6 fl (7.4-10.4); MONOCYTES % 7.4 % (2.0-8.0); NEUTROPHILS % 61.5 % (40.0-76.0); PLATELET 188 x1000/uL (130-400); RED BLOOD CELL COUNT 3.99 mill/uL (4.2-5.4); RED CELL DISTRIBUTION WIDTH 13.2 % (11.6-14.6)
[2018-06-11] MEDS ORDERED: METRONIDAZOLE 500 MG PREMIX 100 ML IV ONE (15:45)
[2018-06-11] MEDS ORDERED: POTASSIUM CHLORIDE 20MEQ TABLET SR PO ONE (15:45)
[2018-06-11] MEDS ORDERED: CEFTRIAXONE 2 G PREMIX 50 ML IV ONE (15:45)
[2018-06-11] MEDS ORDERED: IOHEXOL-300 100 ML BOTTLE ONE (22:12)
[2018-06-11 22:58] VITALS: BP 146/66
[2018-06-12] VITALS: BP 146/66
[2018-06-12] MEDS ORDERED: ACETAMINOPHEN 650MG SUPP PR PRN
[2018-06-12] MEDS ORDERED: DEXTROSE 50% WATER 50ML SYRINGE IV PRN (01:00)
[2018-06-12] MEDS: HYDROMORPHONE HCL/PF 2MG/ML CPJ IV PRN ×3 (01:02→20:49)
[2018-06-12] MEDS: ONDANSETRON HCL 4MG/2ML INJ IV PRN (01:02)
[2018-06-12] MEDS: DEXT 5%/0.45% NACL 1000ML 1,000 ML IV SCH ×2 (01:02→13:20)
[2018-06-12 04:00] VITALS: BP 107/59
[2018-06-12] MEDS: BLOOD SUGAR DIAGNOSTIC STRIP TEST SCH ×2 (06:37→21:55)
[2018-06-12] MEDS: INSULIN LISPRO 100 UNITS/ML SUBCUT SCH ×2 (06:37→21:00)
[2018-06-12 07:49] LABS: BG CARBOXYHEMOGLOBIN 0.3 % (0.5-1.5); BG DEOXYHEMOGLOBIN 12.4 % (0.0-5.0); BG HCO3 ACT 29.4 mmol/L (22.0-26.0); BG METHEMOGLOBIN 0.3 % (0.0-1.5); BG OXYGEN SATURATION 87.5 % (92.0-98.5); BG PH 7.362 (7.350-7.450); BG PO2 54.7 mmHg (75.0-100.0); BG SAMPLE SITE RIGHT BRACHIAL; BG TOTAL HEMOGLOBIN 12.2 g/dL (12.0-18.0); BG VENT MODE ROOM AIR
[2018-06-12 08:00] VITALS: BP 136/68
[2018-06-12 10:42] LABS: BASOPHILS % 0.3 % (0.0-2.0); EOSINOPHILS % 0.9 % (0.0-5.0); HEMATOCRIT. 34.2 % (36.0-48.0); HEMOGLOBIN. 11.5 g/dL (12.0-16.0); LYMPHOCYTES % 17.5 % (20.0-50.0); MEAN CORPUSCULAR HEMOGLOBIN 30.2 pg (28.0-32.0); MEAN CORPUSCULAR VOLUME 89.9 fL (81.0-99.0); NEUTROPHILS % 73.3 % (40.0-76.0); PLATELET 180 x1000/uL (130-400); RED BLOOD CELL COUNT 3.81 mill/uL (4.2-5.4); RED CELL DISTRIBUTION WIDTH 13.3 % (11.6-14.6)
[2018-06-12 12:00] VITALS: BP 145/72
[2018-06-12 12:13] LABS: CHLORIDE 107 mEq/L (98-107)
[2018-06-12 12:14] LABS: PHOSPHORUS 3.1 mg/dL (2.5-4.9)
[2018-06-12 12:15] LABS: HDL CHOLESTEROL 50 mg/dL (40-59); LDL CHOLESTEROL 49 mg/dL (5-100); TOTAL IRON BINDING CAPACITY 359 ug/dL (250-450)
[2018-06-12 12:16] LABS: AMYLASE 204 IU/L (25-115)
[2018-06-12 12:17] LABS: T4 FREE 1.04 ng/dL (0.76-1.46)
[2018-06-12 12:44] LABS: HEPATITIS B SURFACE ANTIGEN NEGATIVE
[2018-06-12 13:14] LABS: HEPATITIS A AB IGM NEGATIVE (NEGATIVE)
[2018-06-12 16:00] VITALS: BP 130/70
[2018-06-12 20:00] VITALS: BP 140/67
[2018-06-13] VITALS: BP 108/60
[2018-06-13 04:00] VITALS: BP 136/54
[2018-06-13] MEDS: DEXT 5%/0.45% NACL 1000ML 1,000 ML IV SCH ×2 (06:14→17:04)
[2018-06-13] MEDS: HYDROMORPHONE HCL/PF 2MG/ML CPJ IV PRN (06:14)
[2018-06-13] MEDS: BLOOD SUGAR DIAGNOSTIC STRIP TEST SCH ×5 (06:22→21:30)
[2018-06-13 07:33] LABS: BASOPHILS % 0.3 % (0.0-2.0); EOSINOPHILS % 1.3 % (0.0-5.0); HEMATOCRIT. 37.7 % (36.0-48.0); HEMOGLOBIN. 12.6 g/dL (12.0-16.0); LYMPHOCYTES % 25.1 % (20.0-50.0); MEAN CORPUSCULAR HEMOGLOBIN 30.1 pg (28.0-32.0); MEAN CORPUSCULAR VOLUME 89.9 fL (81.0-99.0); MEAN PLATELET VOLUME 8.8 fl (7.4-10.4); MONOCYTES % 7.4 % (2.0-8.0); NEUTROPHILS % 65.9 % (40.0-76.0); PLATELET 198 x1000/uL (130-400); RED BLOOD CELL COUNT 4.19 mill/uL (4.2-5.4)
[2018-06-13 08:00] VITALS: BP 138/60
[2018-06-13] MEDS: INSULIN LISPRO 100 UNITS/ML SUBCUT SCH ×4 (08:10→20:37)
[2018-06-13] MEDS: ONDANSETRON HCL 4MG/2ML INJ IV PRN ×2 (09:32→19:23)
[2018-06-13 10:45] LABS: CHLORIDE 102 mEq/L (98-107)
[2018-06-13 10:51] LABS: PHOSPHORUS 2.8 mg/dL (2.5-4.9)
[2018-06-13 10:52] LABS: LDL CHOLESTEROL 47 mg/dL (5-100)
[2018-06-13 10:53] LABS: HDL CHOLESTEROL 45 mg/dL (40-59)
[2018-06-13 10:55] LABS: AMYLASE 102 IU/L (25-115)
[2018-06-13 10:56] LABS: T4 FREE 1.02 ng/dL (0.76-1.46)
[2018-06-13 12:00] VITALS: BP 136/59
[2018-06-13] MEDS ORDERED: KETOROLAC 15MG/ML VIAL IV PRN (12:00)
[2018-06-13] MEDS ORDERED: NA PHOS,M-B/NA PHOS,DI-BA ENEMA 118ML PR NR (12:10)
[2018-06-13] MEDS ORDERED: POTASSIUM CHLORIDE 20MEQ TABLET SR PO NR (12:30)
[2018-06-13 16:00] VITALS: BP 117/66
[2018-06-13 20:00] VITALS: BP 156/51
[2018-06-13] MEDS: TRAMADOL 50MG TABLET PO PRN (20:48)
[2018-06-14] VITALS: BP 144/61
[2018-06-14] MEDS: TRAMADOL 50MG TABLET PO PRN ×2 (03:16→20:20)
[2018-06-14] MEDS: DEXT 5%/0.45% NACL 1000ML 1,000 ML IV SCH ×2 (03:19→18:34)
[2018-06-14 04:00] VITALS: BP 145/68
[2018-06-14] MEDS: BLOOD SUGAR DIAGNOSTIC STRIP TEST SCH ×4 (06:59→20:13)
[2018-06-14 08:00] VITALS: BP 154/71
[2018-06-14] MEDS: INSULIN LISPRO 100 UNITS/ML SUBCUT SCH ×4 (08:10→20:22)
[2018-06-14] MEDS: ONDANSETRON HCL 4MG/2ML INJ IV PRN ×2 (09:54→20:26)
[2018-06-14 12:00] VITALS: BP 117/78
[2018-06-14 16:00] VITALS: BP 143/81
[2018-06-14] MEDS: PANTOPRAZOLE SODIUM 40 MG/VIAL IV SCH (18:34)
[2018-06-14 20:00] VITALS: BP 125/67
[2018-06-15] VITALS: BP 132/79
[2018-06-15] MEDS: ONDANSETRON HCL 4MG/2ML INJ IV PRN (01:46)
[2018-06-15 04:00] VITALS: BP 124/52
[2018-06-15] MEDS: TRAMADOL 50MG TABLET PO PRN ×2 (04:17→21:01)
[2018-06-15] MEDS: BLOOD SUGAR DIAGNOSTIC STRIP TEST SCH ×4 (07:44→20:51)
[2018-06-15] MEDS: PANTOPRAZOLE SODIUM 40 MG/VIAL IV SCH (07:45)
[2018-06-15] MEDS: INSULIN LISPRO 100 UNITS/ML SUBCUT SCH ×4 (07:45→20:51)
[2018-06-15 08:00] VITALS: BP 150/61
[2018-06-15] MEDS: DEXT 5%/0.45% NACL 1000ML 1,000 ML IV SCH ×2 (08:00→20:51)
[2018-06-15 12:00] VITALS: BP 135/55
[2018-06-15 16:00] VITALS: BP 141/78
[2018-06-15 19:09] LABS: 25-HYDROXY VITAMIN D3 3.6 ng/mL (.)
[2018-06-15 20:00] VITALS: BP 156/74
[2018-06-15] MEDS: LORAZEPAM 2MG/ML CPJ IV PRN (21:07)
[2018-06-15] MEDS ORDERED: AMITRIPTYLINE 50MG TABLET PO SCH (23:30)
[2018-06-16 00:05] VITALS: BP 160/73
[2018-06-16 04:00] VITALS: BP 161/80
[2018-06-16] MEDS: BLOOD SUGAR DIAGNOSTIC STRIP TEST SCH ×2 (07:40→12:40)
[2018-06-16 08:00] VITALS: BP 130/62
[2018-06-16] MEDS: INSULIN LISPRO 100 UNITS/ML SUBCUT SCH ×2 (08:10→13:10)
[2018-06-16] MEDS: PANTOPRAZOLE SODIUM 40 MG/VIAL IV SCH (09:40)
[2018-06-16] MEDS: DEXT 5%/0.45% NACL 1000ML 1,000 ML IV SCH (09:40)
[2018-06-16] MEDS: LORAZEPAM 2MG/ML CPJ IV PRN (10:52)
[2018-06-16 12:00] VITALS: BP 148/53
[2018-06-16 15:02] VITALS: BP 148/53
[2018-06-17] MEDS ORDERED: FAMOTIDINE 20MG/2ML VIAL IV SCH (09:00)
== END 2018-06-16 15:45 | disposition home or self-care (01) | DRG 388 ==
LOC: ER 14:28 → 7WST 16:47 → EDBEDREQTM 16:50 → EDBEDREQ 16:50 → ENRESERV 20:16
PROVIDERS: ADMIT Internal Medicine; ATTEND Internal Medicine
DX: K56.7 Ileus, unspecified (principal); K85.90 Acute pancreatitis without necrosis or infection, unspecified; E87.6 Hypokalemia; B19.20 Unspecified viral hepatitis C without hepatic coma; E11.9 Type 2 diabetes mellitus without complications; Z96.653 Presence of artificial knee joint, bilateral; K86.89 Other specified diseases of pancreas; K56.609 Unspecified intestinal obstruction, unspecified as to partial versus complete obstruction; R16.0 Hepatomegaly, not elsewhere classified; E78.00 Pure hypercholesterolemia, unspecified; E78.5 Hyperlipidemia, unspecified; K57.90 Diverticulosis of intestine, part unspecified, without perforation or abscess without bleeding; F41.1 Generalized anxiety disorder; I10 Essential (primary) hypertension; I25.10 Atherosclerotic heart disease of native coronary artery without angina pectoris; J42 Unspecified chronic bronchitis; Z85.3 Personal history of malignant neoplasm of breast; Z90.49 Acquired absence of other specified parts of digestive tract; Z90.710 Acquired absence of both cervix and uterus; Z95.0 Presence of cardiac pacemaker; Z79.84 Long term (current) use of oral hypoglycemic drugs; Z88.5 Allergy status to narcotic agent; Z88.8 Allergy status to other drugs, medicaments and biological substances; Z79.899 Other long term (current) drug therapy
CPT/HCPCS: 36415; 36600; 71045; 74018; 74177; 76700; 80061; 80076; 82150; 82248; 82306; 82375; 82378; 82805; 82962; 83036; 83540; 83550; 83605; 83735; 84100; 84439; 84443; 84481; 84550; 85651; 86677; 86705; 86709; 86803; 87340; 93005; 93970; 96365; 96375; 97116; 97162; 99285; C9113; J0696; J1170; J1815; J1885; J2060; J2270; J2405; J3490; J7030; Q9967

== ENCOUNTER 2018-12-03 15:43 | Inpatient (IN) | payer MEDICARE, MEDICAID ==
[~2018-12-03] VITALS: Ht 162.6 cm; Wt 68.0 kg
[2018-12-03] MEDS ORDERED: ASPIRIN 81MG TABLET PO ONE (17:15)
[2018-12-03 19:14] LABS: BASOPHILS % 0.3 % (0.0-2.0); EOSINOPHILS % 1.6 % (0.0-5.0); HEMATOCRIT. 40.8 % (36.0-48.0); HEMOGLOBIN. 13.6 g/dL (12.0-16.0); MEAN CORPUSCULAR HEMOGLOBIN 29.8 pg (28.0-32.0); MEAN CORPUSCULAR VOLUME 89.6 fL (81.0-99.0); MEAN PLATELET VOLUME 8.4 fl (7.4-10.4); NEUTROPHILS % 66.1 % (40.0-76.0); PLATELET 229 x1000/uL (130-400); RED BLOOD CELL COUNT 4.56 mill/uL (4.2-5.4); RED CELL DISTRIBUTION WIDTH 13.5 % (11.6-14.6)
[2018-12-03 19:17] LABS: CHLORIDE 106 mEq/L (98-107)
[2018-12-03 19:21] LABS: PARTIAL THROMBOPLASTIN TIME 30.6 sec (23.4-31.0); PROTHROMBIN TIME 10.6 sec (9.6-11.0)
[2018-12-03 21:57] VITALS: BP 171/76
[2018-12-03] MEDS ORDERED: PNEUMOCOCCAL 23-VAL P-SAC VAC 0.5 ML IM ONE (22:45)
[2018-12-03] MEDS ORDERED: DIPHENHYDRAMINE 25MG CAPSULE PO PRN (23:30)
[2018-12-03] MEDS ORDERED: ACETAMINOPHEN 325MG TABLET PO PRN (23:30)
[2018-12-03] MEDS ORDERED: POTASSIUM CHLORIDE 8 MEQ TABLET.SA PO ONE (23:30)
[2018-12-04] VITALS: BP 148/65
[2018-12-04] MEDS ORDERED: ACETAMINOPHEN 325MG TABLET PO PRN (00:15)
[2018-12-04] MEDS ORDERED: ONDANSETRON HCL 4MG/2ML INJ IV PRN (00:15)
[2018-12-04] MEDS: TRAMADOL 50MG TABLET PO PRN ×4 (00:25→22:34)
[2018-12-04] MEDS: AMLODIPINE 10MG TABLET PO SCH ×2 (00:26→09:02)
[2018-12-04] MEDS ORDERED: MAGNESIUM CITRATE 300ML SOLUTION PO PRN (01:00)
[2018-12-04] MEDS ORDERED: POTASSIUM BICARB/CIT ACID 25 MEQ TABLET.EFF PO NR (01:00)
[2018-12-04] MEDS ORDERED: TRAMADOL 50MG TABLET PO PRN (01:30)
[2018-12-04] MEDS ORDERED: DEXTROSE 50% WATER 50ML SYRINGE IV PRN (01:45)
[2018-12-04 04:00] VITALS: BP 125/40
[2018-12-04 06:11] LABS: BASOPHILS % 0.2 % (0.0-2.0); EOSINOPHILS % 1.5 % (0.0-5.0); HEMATOCRIT. 37.7 % (36.0-48.0); HEMOGLOBIN. 12.4 g/dL (12.0-16.0); LYMPHOCYTES % 25.1 % (20.0-50.0); MEAN CORPUSCULAR HEMOGLOBIN 29.8 pg (28.0-32.0); MEAN CORPUSCULAR VOLUME 90.3 fL (81.0-99.0); MEAN PLATELET VOLUME 8.5 fl (7.4-10.4); MONOCYTES % 7.6 % (2.0-8.0); NEUTROPHILS % 65.6 % (40.0-76.0); PLATELET 195 x1000/uL (130-400); RED BLOOD CELL COUNT 4.18 mill/uL (4.2-5.4); RED CELL DISTRIBUTION WIDTH 13.2 % (11.6-14.6)
[2018-12-04] MEDS: INSULIN LISPRO 100 UNITS/ML SUBCUT SCH ×4 (06:31→21:00)
[2018-12-04] MEDS: BLOOD SUGAR DIAGNOSTIC STRIP TEST SCH ×4 (06:31→21:22)
[2018-12-04] MEDS: DOCUSATE SODIUM 100MG CAPSULE PO SCH ×2 (06:32→17:10)
[2018-12-04 06:43] LABS: PHOSPHORUS 2.6 mg/dL (2.5-4.9)
[2018-12-04 06:44] LABS: LDL CHOLESTEROL 54 mg/dL (5-100); TOTAL IRON BINDING CAPACITY 334 ug/dL (250-450)
[2018-12-04 06:45] LABS: HDL CHOLESTEROL 52 mg/dL (40-59); T4 FREE 0.91 ng/dL (0.76-1.46)
[2018-12-04] MEDS ORDERED: NON FORMULARY PATIENT HOME MED XX SCH (07:00)
[2018-12-04 08:00] VITALS: BP 144/75
[2018-12-04] MEDS: LOSARTAN POTASSIUM 25 MG TABLET PO SCH (09:01)
[2018-12-04] MEDS: CHOLECALCIFEROL (D3) 1000 UNIT TABLET PO SCH (09:01)
[2018-12-04] MEDS: POTASSIUM CHLORIDE 20MEQ/PACKET PO SCH ×2 (09:01→17:10)
[2018-12-04] MEDS: MONTELUKAST SODIUM 10MG TABLET PO SCH (09:01)
[2018-12-04] MEDS: SERTRALINE HCL 25MG TABLET PO SCH (09:01)
[2018-12-04 10:28] LABS: CLARITY URINE CLEAR (CLEAR); COLOR URINE YELLOW (YELLOW); KETONES URINE NEGATIVE (NEGATIVE); LEUKOCYTE ESTERASE URINE 1+ (NEGATIVE); NITRITE URINE NEGATIVE (NEGATIVE); OCCULT BLOOD URINE NEGATIVE (NEGATIVE); PH URINE 6.5 (4.5-8.0); PROTEIN URINE NEGATIVE (NEGATIVE); SPECIFIC GRAVITY URINE 1.016 (1.005-1.030); UROBILINOGEN URINE 0.2 E.U./dL (0.2-1.0)
[2018-12-04 10:35] LABS: CANNABINOID URINE SCREEN NEGATIVE (NEGATIVE); PHENCYCLIDINE URINE SCREEN NEGATIVE (NEGATIVE)
[2018-12-04 10:36] LABS: *BENZODIAZEPINES SCREEN URINE PRESUMTIVE POSITIVE (NEGATIVE); *COCAINE SCREEN URINE NEGATIVE (NEGATIVE); METHADONE URINE SCREEN NEGATIVE (NEGATIVE)
[2018-12-04 10:37] LABS: OPIATES URINE SCREEN NEGATIVE (NEGATIVE)
[2018-12-04 10:38] LABS: *AMPHETAMINES SCREEN URINE NEGATIVE (NEGATIVE)
[2018-12-04 10:39] LABS: *BARBITURATES SCREEN URINE NEGATIVE (NEGATIVE)
[2018-12-04 12:00] VITALS: BP 129/60
[2018-12-04 15:08] LABS: CHLORIDE 105 mEq/L (98-107)
[2018-12-04 16:00] VITALS: BP 122/68
[2018-12-04 20:00] VITALS: BP 142/69
[2018-12-05] VITALS: BP 132/82
[2018-12-05 04:00] VITALS: BP 134/56
[2018-12-05] MEDS: DOCUSATE SODIUM 100MG CAPSULE PO SCH ×2 (06:40→16:33)
[2018-12-05] MEDS: BLOOD SUGAR DIAGNOSTIC STRIP TEST SCH ×3 (06:40→17:24)
[2018-12-05] MEDS: INSULIN LISPRO 100 UNITS/ML SUBCUT SCH ×3 (06:41→17:46)
[2018-12-05 07:52] LABS: BASOPHILS % 0.4 % (0.0-2.0); EOSINOPHILS % 1.7 % (0.0-5.0); HEMATOCRIT. 35.9 % (36.0-48.0); LYMPHOCYTES % 30.5 % (20.0-50.0); MEAN CORPUSCULAR HEMOGLOBIN 30.2 pg (28.0-32.0); MEAN CORPUSCULAR VOLUME 90.2 fL (81.0-99.0); MEAN PLATELET VOLUME 8.5 fl (7.4-10.4); MONOCYTES % 10.5 % (2.0-8.0); NEUTROPHILS % 56.9 % (40.0-76.0); PLATELET 207 x1000/uL (130-400); RED BLOOD CELL COUNT 3.98 mill/uL (4.2-5.4); RED CELL DISTRIBUTION WIDTH 13.2 % (11.6-14.6)
[2018-12-05 08:00] VITALS: BP 128/74
[2018-12-05] MEDS: LOSARTAN POTASSIUM 25 MG TABLET PO SCH (09:29)
[2018-12-05] MEDS: CHOLECALCIFEROL (D3) 1000 UNIT TABLET PO SCH (09:29)
[2018-12-05] MEDS: MONTELUKAST SODIUM 10MG TABLET PO SCH (09:29)
[2018-12-05] MEDS: AMLODIPINE 10MG TABLET PO SCH (09:30)
[2018-12-05] MEDS: POTASSIUM CHLORIDE 20MEQ/PACKET PO SCH (09:30)
[2018-12-05] MEDS: SERTRALINE HCL 25MG TABLET PO SCH (09:30)
[2018-12-05 12:00] VITALS: BP 114/74
[2018-12-05] MEDS ORDERED: POTASSIUM CHLORIDE 20MEQ TABLET SR PO NR (12:45)
[2018-12-05 13:32] VITALS: BP 114/74
[2018-12-05 16:00] VITALS: BP 132/71
[2018-12-06] MEDS ORDERED: LOSA50TA41 PO (00:42)
[2018-12-06] MEDS ORDERED: TRAM50TA PO (00:42)
[2018-12-06] MEDS ORDERED: ERGO2000 PO (00:42)
[2018-12-06] MEDS ORDERED: POTA-81 PO (00:42)
[2018-12-06] MEDS ORDERED: SERT50TA12 PO (00:42)
[2018-12-06] MEDS ORDERED: LEVE500T98 PO (00:42)
[2018-12-06] MEDS ORDERED: ATOR20TA65 PO (00:42)
[2019-02-10] MEDS ORDERED: SITA100T11 PO (08:52)
== END 2018-12-05 17:35 | DRG 71 ==
LOC: ER 15:43 → 5WST 17:20 → EDBEDREQ 17:42 → ENRESERV 19:28 → 8WST 12-04 20:08
PROVIDERS: ADMIT Internal Medicine; ATTEND Internal Medicine
DX: G93.40 Encephalopathy, unspecified (principal); I69.354 Hemiplegia and hemiparesis following cerebral infarction affecting left non-dominant side; R47.01 Aphasia; R53.1 Weakness; I10 Essential (primary) hypertension; F41.0 Panic disorder [episodic paroxysmal anxiety]; F41.1 Generalized anxiety disorder; E78.5 Hyperlipidemia, unspecified; E11.42 Type 2 diabetes mellitus with diabetic polyneuropathy; I25.10 Atherosclerotic heart disease of native coronary artery without angina pectoris; M16.12 Unilateral primary osteoarthritis, left hip; Z96.653 Presence of artificial knee joint, bilateral; F32.9 Major depressive disorder, single episode, unspecified; G47.00 Insomnia, unspecified; M48.02 Spinal stenosis, cervical region; M48.061 Spinal stenosis, lumbar region without neurogenic claudication; M51.34 Other intervertebral disc degeneration, thoracic region; M51.36 Other intervertebral disc degeneration, lumbar region; M50.30 Other cervical disc degeneration, unspecified cervical region; Z81.8 Family history of other mental and behavioral disorders; Z87.440 Personal history of urinary (tract) infections; Z85.3 Personal history of malignant neoplasm of breast; Z92.21 Personal history of antineoplastic chemotherapy; Z90.710 Acquired absence of both cervix and uterus; Z95.0 Presence of cardiac pacemaker; Z88.6 Allergy status to analgesic agent; Z88.8 Allergy status to other drugs, medicaments and biological substances; Z79.899 Other long term (current) drug therapy; Z90.11 Acquired absence of right breast and nipple
CPT/HCPCS: 36415; 71045; 72128; 72131; 72192; 80048; 80061; 80076; 80305; 82310; 82962; 83036; 83540; 83550; 83735; 83880; 84100; 84439; 84443; 84481; 84484; 84550; 85651; 90732; 92523; 92610; 93005; 93306; 93880; 97110; 97116; 97162; 97166; 97530; 99285; J1815; Q0163

== ENCOUNTER 2018-12-05 18:41 | Inpatient (IN) | payer MEDICARE, MEDICAID ==
[~2018-12-05] VITALS: Ht 162.6 cm; Wt 68.0 kg
[2018-12-05 18:00] VITALS: BP 107/68
[2018-12-05] MEDS ORDERED: DIPHENHYDRAMINE 25MG CAPSULE PO PRN (19:30)
[2018-12-05] MEDS ORDERED: ONDANSETRON 4MG ODT PO PRN (19:30)
[2018-12-05] MEDS ORDERED: MAGNESIUM CITRATE 300ML SOLUTION PO PRN (19:30)
[2018-12-05] MEDS ORDERED: DEXTROSE 50% WATER 50ML SYRINGE IV PRN (19:30)
[2018-12-05 20:00] VITALS: BP 117/90
[2018-12-05] MEDS ORDERED: NON FORMULARY PATIENT HOME MED XX SCH (20:00)
[2018-12-05] MEDS: BLOOD SUGAR DIAGNOSTIC STRIP TEST SCH (21:00)
[2018-12-05] MEDS: INSULIN LISPRO 100 UNITS/ML SUBCUT SCH (21:00)
[2018-12-05 23:01] VITALS: BP 117/90
[2018-12-06] MEDS ORDERED: ERGO2000 PO (00:42)
[2018-12-06] MEDS ORDERED: ATOR20TA65 PO (00:42)
[2018-12-06] MEDS ORDERED: TRAM50TA PO (00:42)
[2018-12-06] MEDS ORDERED: LOSA50TA20 PO (00:42)
[2018-12-06] MEDS ORDERED: LEVE500T78 PO (00:42)
[2018-12-06] MEDS ORDERED: SERT50TA12 PO (00:42)
[2018-12-06] MEDS ORDERED: POTA-81 PO (00:42)
[2018-12-06 05:58] VITALS: BP 119/56
[2018-12-06] MEDS: TRAMADOL 50MG TABLET PO PRN ×2 (05:59→13:14)
[2018-12-06] MEDS: DOCUSATE SODIUM 100MG CAPSULE PO SCH ×2 (06:03→17:22)
[2018-12-06] MEDS: BLOOD SUGAR DIAGNOSTIC STRIP TEST SCH ×4 (06:03→20:38)
[2018-12-06] MEDS: INSULIN LISPRO 100 UNITS/ML SUBCUT SCH ×4 (06:03→20:38)
[2018-12-06 07:03] LABS: BASOPHILS % 0.4 % (0.0-2.0); HEMOGLOBIN. 13.2 g/dL (12.0-16.0); LYMPHOCYTES % 27.6 % (20.0-50.0); MEAN CORPUSCULAR HEMOGLOBIN 30.4 pg (28.0-32.0); MEAN PLATELET VOLUME 8.5 fl (7.4-10.4); MONOCYTES % 7.8 % (2.0-8.0); NEUTROPHILS % 62.2 % (40.0-76.0); PLATELET 250 x1000/uL (130-400); RED BLOOD CELL COUNT 4.34 mill/uL (4.2-5.4); RED CELL DISTRIBUTION WIDTH 13.2 % (11.6-14.6)
[2018-12-06 07:14] LABS: CHLORIDE 102 mEq/L (98-107)
[2018-12-06 08:00] VITALS: BP 117/69
[2018-12-06] MEDS: CHOLECALCIFEROL (D3) 1000 UNIT TABLET PO SCH (09:00)
[2018-12-06] MEDS: SERTRALINE HCL 25MG TABLET PO SCH (09:00)
[2018-12-06] MEDS: AMLODIPINE 10MG TABLET PO SCH (09:00)
[2018-12-06] MEDS ORDERED: POTASSIUM CHLORIDE 20MEQ/PACKET PO SCH (09:00)
[2018-12-06] MEDS: LOSARTAN POTASSIUM 25 MG TABLET PO SCH (09:00)
[2018-12-06] MEDS: MONTELUKAST SODIUM 10MG TABLET PO SCH (09:00)
[2018-12-06 20:00] VITALS: BP 121/72
[2018-12-07] MEDS: INSULIN LISPRO 100 UNITS/ML SUBCUT SCH ×4 (05:51→21:00)
[2018-12-07] MEDS: BLOOD SUGAR DIAGNOSTIC STRIP TEST SCH ×4 (05:51→21:00)
[2018-12-07] MEDS: TRAMADOL 50MG TABLET PO PRN ×2 (05:56→23:00)
[2018-12-07] MEDS: DOCUSATE SODIUM 100MG CAPSULE PO SCH ×2 (06:00→16:32)
[2018-12-07 07:51] VITALS: BP 147/75
[2018-12-07] MEDS ORDERED: ENOXAPARIN 40MG/0.4ML SYR SUBCUT SCH (09:00)
[2018-12-07] MEDS: LOSARTAN POTASSIUM 25 MG TABLET PO SCH (09:30)
[2018-12-07] MEDS: MONTELUKAST SODIUM 10MG TABLET PO SCH (09:30)
[2018-12-07] MEDS: SERTRALINE HCL 25MG TABLET PO SCH (09:30)
[2018-12-07] MEDS: AMLODIPINE 10MG TABLET PO SCH (09:30)
[2018-12-07] MEDS: CHOLECALCIFEROL (D3) 1000 UNIT TABLET PO SCH (09:31)
[2018-12-07] MEDS: LIDOCAINE HCL 4% CREAM 76GM TUBE TP PRN (14:44)
[2018-12-07 16:17] LABS: CLARITY URINE CLEAR (CLEAR); COLOR URINE YELLOW (YELLOW); KETONES URINE NEGATIVE (NEGATIVE); LEUKOCYTE ESTERASE URINE 3+ (NEGATIVE); NITRITE URINE NEGATIVE (NEGATIVE); OCCULT BLOOD URINE NEGATIVE (NEGATIVE); PH URINE 6.5 (4.5-8.0); PROTEIN URINE NEGATIVE (NEGATIVE); SPECIFIC GRAVITY URINE 1.019 (1.005-1.030); UROBILINOGEN URINE 0.2 E.U./dL (0.2-1.0)
[2018-12-07 20:00] VITALS: BP 127/68
[2018-12-08] MEDS: LIDOCAINE HCL 4% CREAM 76GM TUBE TP PRN (03:21)
[2018-12-08] MEDS: ACETAMINOPHEN 325MG TABLET PO PRN (03:21)
[2018-12-08] MEDS: DOCUSATE SODIUM 100MG CAPSULE PO SCH ×2 (05:41→17:38)
[2018-12-08] MEDS: BLOOD SUGAR DIAGNOSTIC STRIP TEST SCH ×4 (06:05→21:00)
[2018-12-08] MEDS: INSULIN LISPRO 100 UNITS/ML SUBCUT SCH ×4 (06:40→21:00)
[2018-12-08 07:27] LABS: BASOPHILS % 0.4 % (0.0-2.0); EOSINOPHILS % 2.8 % (0.0-5.0); HEMATOCRIT. 35.1 % (36.0-48.0); HEMOGLOBIN. 11.9 g/dL (12.0-16.0); LYMPHOCYTES % 27.1 % (20.0-50.0); MEAN CORPUSCULAR HEMOGLOBIN 30.5 pg (28.0-32.0); MEAN CORPUSCULAR VOLUME 90.1 fL (81.0-99.0); MEAN PLATELET VOLUME 8.5 fl (7.4-10.4); MONOCYTES % 11.5 % (2.0-8.0); NEUTROPHILS % 58.2 % (40.0-76.0); PLATELET 196 x1000/uL (130-400); RED CELL DISTRIBUTION WIDTH 13.3 % (11.6-14.6)
[2018-12-08 08:20] LABS: CHLORIDE 103 mEq/L (98-107)
[2018-12-08 08:28] LABS: PHOSPHORUS 4.1 mg/dL (2.5-4.9)
[2018-12-08 08:29] LABS: LDL CHOLESTEROL 71 mg/dL (5-100)
[2018-12-08 08:30] LABS: TOTAL IRON BINDING CAPACITY 329 ug/dL (250-450)
[2018-12-08 08:32] LABS: HDL CHOLESTEROL 42 mg/dL (40-59)
[2018-12-08] MEDS: LOSARTAN POTASSIUM 25 MG TABLET PO SCH (08:37)
[2018-12-08] MEDS: SERTRALINE HCL 25MG TABLET PO SCH (08:37)
[2018-12-08] MEDS: CHOLECALCIFEROL (D3) 1000 UNIT TABLET PO SCH (08:37)
[2018-12-08] MEDS: AMLODIPINE 10MG TABLET PO SCH (08:37)
[2018-12-08] MEDS: MONTELUKAST SODIUM 10MG TABLET PO SCH (08:37)
[2018-12-08 08:39] VITALS: BP 126/71
[2018-12-08 10:10] LABS: FOLIC ACID (FOLATE) SERUM 17.6 ng/mL (>5.38)
[2018-12-08] MEDS: TRAMADOL 50MG TABLET PO PRN ×2 (12:15→22:35)
[2018-12-08] MEDS: CYANOCOBALAMIN 1000MCG/ML VIAL IM SCH (12:21)
[2018-12-08] MEDS: FERROUS SULFATE 325MG TABLET PO SCH ×2 (12:50→17:38)
[2018-12-08 20:00] VITALS: BP 154/96
[2018-12-08] MEDS: POLYETHYLENE GLYCOL 3350 (17GM) 1 DOSE PACK PO SCH (22:34)
[2018-12-09] MEDS: ACETAMINOPHEN 325MG TABLET PO PRN ×3 (05:47→15:08)
[2018-12-09] MEDS: BLOOD SUGAR DIAGNOSTIC STRIP TEST SCH ×4 (05:48→21:13)
[2018-12-09] MEDS: INSULIN LISPRO 100 UNITS/ML SUBCUT SCH ×4 (06:25→21:33)
[2018-12-09 08:00] VITALS: BP 145/72
[2018-12-09] MEDS: FERROUS SULFATE 325MG TABLET PO SCH ×3 (08:47→17:19)
[2018-12-09] MEDS: AMLODIPINE 10MG TABLET PO SCH (08:47)
[2018-12-09] MEDS: CHOLECALCIFEROL (D3) 1000 UNIT TABLET PO SCH (08:47)
[2018-12-09] MEDS: DOCUSATE SODIUM 100MG CAPSULE PO SCH ×2 (08:48→17:19)
[2018-12-09] MEDS: SERTRALINE HCL 25MG TABLET PO SCH (08:48)
[2018-12-09] MEDS: MONTELUKAST SODIUM 10MG TABLET PO SCH (08:48)
[2018-12-09] MEDS: CYANOCOBALAMIN 1000MCG/ML VIAL IM SCH (08:48)
[2018-12-09] MEDS ORDERED: CYANOCOBALAMIN 1000MCG TABLET PO SCH (09:00)
[2018-12-09] MEDS: LOSARTAN POTASSIUM 25 MG TABLET PO SCH (09:00)
[2018-12-09] MEDS: TRAMADOL 50MG TABLET PO PRN (17:05)
[2018-12-09 20:00] VITALS: BP 120/85
[2018-12-09] MEDS: POLYETHYLENE GLYCOL 3350 (17GM) 1 DOSE PACK PO SCH (21:32)
[2018-12-10] MEDS: INSULIN LISPRO 100 UNITS/ML SUBCUT SCH ×4 (06:00→20:58)
[2018-12-10] MEDS: BLOOD SUGAR DIAGNOSTIC STRIP TEST SCH ×4 (06:33→20:48)
[2018-12-10 07:05] LABS: BASOPHILS % 0.5 % (0.0-2.0); EOSINOPHILS % 2.5 % (0.0-5.0); HEMATOCRIT. 36.9 % (36.0-48.0); HEMOGLOBIN. 12.4 g/dL (12.0-16.0); LYMPHOCYTES % 29.3 % (20.0-50.0); MEAN CORPUSCULAR HEMOGLOBIN 30.3 pg (28.0-32.0); MEAN CORPUSCULAR VOLUME 90.4 fL (81.0-99.0); MEAN PLATELET VOLUME 8.2 fl (7.4-10.4); MONOCYTES % 10.5 % (2.0-8.0); NEUTROPHILS % 57.2 % (40.0-76.0); PLATELET 199 x1000/uL (130-400); RED BLOOD CELL COUNT 4.08 mill/uL (4.2-5.4); RED CELL DISTRIBUTION WIDTH 13.4 % (11.6-14.6)
[2018-12-10 07:23] LABS: T4 FREE 0.95 ng/dL (0.76-1.46)
[2018-12-10 08:21] VITALS: BP 116/59
[2018-12-10] MEDS: AMLODIPINE 10MG TABLET PO SCH (09:14)
[2018-12-10] MEDS: MONTELUKAST SODIUM 10MG TABLET PO SCH (09:14)
[2018-12-10] MEDS: CHOLECALCIFEROL (D3) 1000 UNIT TABLET PO SCH (09:14)
[2018-12-10] MEDS: SERTRALINE HCL 25MG TABLET PO SCH (09:14)
[2018-12-10] MEDS: FERROUS SULFATE 325MG TABLET PO SCH ×3 (09:14→16:57)
[2018-12-10] MEDS: DOCUSATE SODIUM 100MG CAPSULE PO SCH ×2 (09:14→16:57)
[2018-12-10] MEDS: LOSARTAN POTASSIUM 25 MG TABLET PO SCH (09:15)
[2018-12-10] MEDS: TRAMADOL 50MG TABLET PO PRN (09:15)
[2018-12-10] MEDS: CYANOCOBALAMIN 1000MCG/ML VIAL IM SCH (09:15)
[2018-12-10 20:00] VITALS: BP 114/65
[2018-12-10] MEDS: POLYETHYLENE GLYCOL 3350 (17GM) 1 DOSE PACK PO SCH (20:45)
[2018-12-11] MEDS: TRAMADOL 50MG TABLET PO PRN ×3 (01:02→22:37)
[2018-12-11 07:11] LABS: BASOPHILS % 0.6 % (0.0-2.0); EOSINOPHILS % 2.7 % (0.0-5.0); HEMATOCRIT. 35.3 % (36.0-48.0); HEMOGLOBIN. 11.9 g/dL (12.0-16.0); LYMPHOCYTES % 28.5 % (20.0-50.0); MEAN CORPUSCULAR HEMOGLOBIN 30.3 pg (28.0-32.0); MEAN CORPUSCULAR VOLUME 90.2 fL (81.0-99.0); MEAN PLATELET VOLUME 8.4 fl (7.4-10.4); MONOCYTES % 11.3 % (2.0-8.0); NEUTROPHILS % 56.9 % (40.0-76.0); PLATELET 196 x1000/uL (130-400); RED BLOOD CELL COUNT 3.92 mill/uL (4.2-5.4); RED CELL DISTRIBUTION WIDTH 13.5 % (11.6-14.6)
[2018-12-11] MEDS: BLOOD SUGAR DIAGNOSTIC STRIP TEST SCH ×4 (07:17→20:34)
[2018-12-11 07:24] LABS: CHLORIDE 103 mEq/L (98-107)
[2018-12-11 08:09] VITALS: BP 126/54
[2018-12-11] MEDS: CYANOCOBALAMIN 1000MCG/ML VIAL IM SCH (08:13)
[2018-12-11] MEDS: DOCUSATE SODIUM 100MG CAPSULE PO SCH ×2 (08:14→17:31)
[2018-12-11] MEDS: LOSARTAN POTASSIUM 25 MG TABLET PO SCH (08:14)
[2018-12-11] MEDS: FERROUS SULFATE 325MG TABLET PO SCH ×3 (08:14→17:31)
[2018-12-11] MEDS: MONTELUKAST SODIUM 10MG TABLET PO SCH (08:14)
[2018-12-11] MEDS: CHOLECALCIFEROL (D3) 1000 UNIT TABLET PO SCH (08:14)
[2018-12-11] MEDS: SERTRALINE HCL 25MG TABLET PO SCH (08:14)
[2018-12-11] MEDS: AMLODIPINE 10MG TABLET PO SCH (08:14)
[2018-12-11] MEDS: INSULIN LISPRO 100 UNITS/ML SUBCUT SCH ×4 (08:51→20:34)
[2018-12-11 18:55] VITALS: BP 111/70
[2018-12-11 20:00] VITALS: BP 139/75
[2018-12-11] MEDS: POLYETHYLENE GLYCOL 3350 (17GM) 1 DOSE PACK PO SCH (20:34)
[2018-12-12] MEDS: INSULIN LISPRO 100 UNITS/ML SUBCUT SCH ×2 (05:41→12:05)
[2018-12-12] MEDS: BLOOD SUGAR DIAGNOSTIC STRIP TEST SCH ×2 (05:41→10:29)
[2018-12-12] MEDS: TRAMADOL 50MG TABLET PO PRN (05:41)
[2018-12-12] MEDS ORDERED: LEVOTHYROXINE SODIUM 25MCG TABLET PO SCH (07:00)
[2018-12-12 08:00] VITALS: BP 111/70
[2018-12-12] MEDS: FERROUS SULFATE 325MG TABLET PO SCH ×2 (08:29→12:22)
[2018-12-12] MEDS: CHOLECALCIFEROL (D3) 1000 UNIT TABLET PO SCH (08:29)
[2018-12-12] MEDS: CYANOCOBALAMIN 1000MCG/ML VIAL IM SCH (08:29)
[2018-12-12] MEDS: DOCUSATE SODIUM 100MG CAPSULE PO SCH (08:29)
[2018-12-12] MEDS: MONTELUKAST SODIUM 10MG TABLET PO SCH (08:30)
[2018-12-12] MEDS: AMLODIPINE 10MG TABLET PO SCH (08:30)
[2018-12-12] MEDS: LOSARTAN POTASSIUM 25 MG TABLET PO SCH (08:30)
[2018-12-12] MEDS: SERTRALINE HCL 25MG TABLET PO SCH (08:30)
[2018-12-12 19:14] LABS: 25-HYDROXY VITAMIN D3 3.9 ng/mL (.)
[2018-12-21] MEDS ORDERED: CYANOCOBALAMIN 1000MCG/ML VIAL IM SCH (09:00)
== END 2018-12-12 13:30 | disposition home health service (06) | DRG 91 ==
PROVIDERS: ADMIT Physical Medicine & Rehabilitation Spinal Cord Injury Medicine; ATTEND Internal Medicine
DX: G92 Toxic encephalopathy (principal); I63.9 Cerebral infarction, unspecified; R47.01 Aphasia; I69.354 Hemiplegia and hemiparesis following cerebral infarction affecting left non-dominant side; M48.061 Spinal stenosis, lumbar region without neurogenic claudication; R47.1 Dysarthria and anarthria; I10 Essential (primary) hypertension; E11.42 Type 2 diabetes mellitus with diabetic polyneuropathy; M48.02 Spinal stenosis, cervical region; Z96.653 Presence of artificial knee joint, bilateral; M16.0 Bilateral primary osteoarthritis of hip; R53.81 Other malaise; I25.10 Atherosclerotic heart disease of native coronary artery without angina pectoris; E03.9 Hypothyroidism, unspecified; E53.8 Deficiency of other specified B group vitamins; M47.812 Spondylosis without myelopathy or radiculopathy, cervical region; D64.9 Anemia, unspecified; E78.00 Pure hypercholesterolemia, unspecified; F32.9 Major depressive disorder, single episode, unspecified; F41.9 Anxiety disorder, unspecified; M50.30 Other cervical disc degeneration, unspecified cervical region; M51.34 Other intervertebral disc degeneration, thoracic region; M51.36 Other intervertebral disc degeneration, lumbar region; M47.815 Spondylosis without myelopathy or radiculopathy, thoracolumbar region; E55.9 Vitamin D deficiency, unspecified; Z92.21 Personal history of antineoplastic chemotherapy; Z95.0 Presence of cardiac pacemaker; Z85.3 Personal history of malignant neoplasm of breast; Z90.710 Acquired absence of both cervix and uterus; Z86.14 Personal history of Methicillin resistant Staphylococcus aureus infection; Z80.7 Family history of other malignant neoplasms of lymphoid, hematopoietic and related tissues; Z98.41 Cataract extraction status, right eye; Z88.6 Allergy status to analgesic agent; Z88.8 Allergy status to other drugs, medicaments and biological substances; Z79.899 Other long term (current) drug therapy; Z79.4 Long term (current) use of insulin; Z82.49 Family history of ischemic heart disease and other diseases of the circulatory system
CPT/HCPCS: 36415; 73522; 73562; 80061; 82140; 82306; 82607; 82728; 82746; 82962; 83540; 83550; 83735; 84100; 84134; 84439; 84443; 84481; 92523; 92610; 93970; 97110; 97112; 97116; 97162; 97167; 97530; 97535; G0515; J1815; J3420; Q0163

== ENCOUNTER 2019-01-11 15:39 | Inpatient (IN) | payer MEDICARE, MEDICAID ==
[~2019-01-11] VITALS: Ht 165.1 cm; Wt 66.7 kg
[~2019-01-11 15:39] MED LIST changes: -AMIT-188 GT; +ATOR20TA65 PO; +LEVE500T98 PO; -LOSA25TA3 PO; +LOSA50TA41 PO; +POTA-81 PO; -SERT25TA74 PO; +SERT50TA12 PO; +TRAM50TA PO; -TRAM50TA3 PO
[2019-01-11] MEDS ORDERED: ONDANSETRON HCL 4MG/2ML INJ IV STA (16:01)
[2019-01-11] MEDS ORDERED: MORPHINE SULFATE 4 MG/ML CPJ (NOT FOR IM USE) IV STA (16:01)
[2019-01-11 17:34] LABS: BASOPHILS % 0.8 % (0.0-2.0); EOSINOPHILS % 1.9 % (0.0-5.0); HEMATOCRIT. 38.2 % (36.0-48.0); HEMOGLOBIN. 12.8 g/dL (12.0-16.0); LYMPHOCYTES % 29.6 % (20.0-50.0); MEAN CORPUSCULAR HEMOGLOBIN 30.2 pg (28.0-32.0); MEAN CORPUSCULAR VOLUME 89.9 fL (81.0-99.0); MEAN PLATELET VOLUME 8.1 fl (7.4-10.4); MONOCYTES % 6.7 % (2.0-8.0); PLATELET 222 x1000/uL (130-400); RED BLOOD CELL COUNT 4.25 mill/uL (4.2-5.4); RED CELL DISTRIBUTION WIDTH 13.6 % (11.6-14.6)
[2019-01-11 17:37] LABS: CHLORIDE 105 mEq/L (98-107)
[2019-01-11 17:38] LABS: INR 1.1; PARTIAL THROMBOPLASTIN TIME 30.7 sec (23.4-31.0); PROTHROMBIN TIME 11.2 sec (9.6-11.0)
[2019-01-11] MEDS ORDERED: POTASSIUM CHLORIDE 20MEQ TABLET SR PO ONE (19:45)
[2019-01-11 23:56] VITALS: BP 158/85
[2019-01-12] MEDS ORDERED: ONDANSETRON HCL 4MG/2ML INJ IV PRN (00:30)
[2019-01-12] MEDS ORDERED: MAGNESIUM CITRATE 300ML SOLUTION PO PRN (00:45)
[2019-01-12] MEDS ORDERED: DEXTROSE 50% WATER 50ML SYRINGE IV PRN (00:45)
[2019-01-12] MEDS ORDERED: ACETAMINOPHEN 325MG TABLET PO PRN (00:45)
[2019-01-12] MEDS: TRAMADOL 50MG TABLET PO PRN ×2 (01:37→16:06)
[2019-01-12 04:00] VITALS: BP 138/54
[2019-01-12 06:40] LABS: INR 1.1; PROTHROMBIN TIME 10.8 sec (9.6-11.0)
[2019-01-12] MEDS: BLOOD SUGAR DIAGNOSTIC STRIP TEST SCH ×4 (06:45→22:11)
[2019-01-12] MEDS: LEVOTHYROXINE SODIUM 25MCG TABLET PO SCH (06:55)
[2019-01-12 07:20] LABS: CHLORIDE 104 mEq/L (98-107)
[2019-01-12 07:35] LABS: HDL CHOLESTEROL 50 mg/dL (40-59)
[2019-01-12 07:36] LABS: LDL CHOLESTEROL 74 mg/dL (5-100); PHOSPHORUS 2.7 mg/dL (2.5-4.9)
[2019-01-12 08:00] VITALS: BP 149/75
[2019-01-12 08:08] LABS: CLARITY URINE CLOUDY (CLEAR); COLOR URINE YELLOW (YELLOW); KETONES URINE NEGATIVE (NEGATIVE); LEUKOCYTE ESTERASE URINE 1+ (NEGATIVE); NITRITE URINE NEGATIVE (NEGATIVE); OCCULT BLOOD URINE NEGATIVE (NEGATIVE); PROTEIN URINE NEGATIVE (NEGATIVE); SPECIFIC GRAVITY URINE 1.012 (1.005-1.030)
[2019-01-12] MEDS: DOCUSATE SODIUM 100MG CAPSULE PO SCH ×2 (09:54→16:07)
[2019-01-12] MEDS: SERTRALINE HCL 25MG TABLET PO SCH (09:54)
[2019-01-12] MEDS: LOSARTAN POTASSIUM 25 MG TABLET PO SCH (09:54)
[2019-01-12] MEDS: AMLODIPINE 10MG TABLET PO SCH (09:55)
[2019-01-12] MEDS: INSULIN LISPRO 100 UNITS/ML SUBCUT SCH ×4 (10:11→22:11)
[2019-01-12 12:00] VITALS: BP 133/67
[2019-01-12] MEDS ORDERED: POTASSIUM BICARB/CIT ACID 25 MEQ TABLET.EFF PO NR (15:30)
[2019-01-12] MEDS: MONTELUKAST SODIUM 10MG TABLET PO SCH (16:03)
[2019-01-12] MEDS: POTASSIUM BICARB/CIT ACID 25 MEQ TABLET.EFF PO SCH (17:00)
[2019-01-12 17:11] VITALS: BP 128/63
[2019-01-12 20:50] VITALS: BP 141/67
[2019-01-13 00:47] VITALS: BP 120/59
[2019-01-13 04:00] VITALS: BP 145/76
[2019-01-13] MEDS: BLOOD SUGAR DIAGNOSTIC STRIP TEST SCH ×4 (06:36→21:14)
[2019-01-13 07:23] LABS: BASOPHILS % 0.4 % (0.0-2.0); EOSINOPHILS % 1.6 % (0.0-5.0); HEMATOCRIT. 38.7 % (36.0-48.0); HEMOGLOBIN. 12.8 g/dL (12.0-16.0); LYMPHOCYTES % 27.2 % (20.0-50.0); MEAN CORPUSCULAR HEMOGLOBIN 29.8 pg (28.0-32.0); MEAN CORPUSCULAR VOLUME 90.3 fL (81.0-99.0); MEAN PLATELET VOLUME 8.5 fl (7.4-10.4); MONOCYTES % 8.6 % (2.0-8.0); NEUTROPHILS % 62.2 % (40.0-76.0); PLATELET 241 x1000/uL (130-400); RED BLOOD CELL COUNT 4.28 mill/uL (4.2-5.4); RED CELL DISTRIBUTION WIDTH 13.7 % (11.6-14.6)
[2019-01-13] MEDS: INSULIN LISPRO 100 UNITS/ML SUBCUT SCH ×4 (07:29→21:22)
[2019-01-13 07:52] VITALS: BP 147/84
[2019-01-13 08:02] LABS: VITAMIN B12 SERUM 470 pg/mL (211-911)
[2019-01-13] MEDS: LOSARTAN POTASSIUM 25 MG TABLET PO SCH (09:04)
[2019-01-13] MEDS: POTASSIUM BICARB/CIT ACID 25 MEQ TABLET.EFF PO SCH ×3 (09:04→17:02)
[2019-01-13] MEDS: SERTRALINE HCL 25MG TABLET PO SCH (09:04)
[2019-01-13] MEDS: LEVOTHYROXINE SODIUM 25MCG TABLET PO SCH (09:04)
[2019-01-13] MEDS: DOCUSATE SODIUM 100MG CAPSULE PO SCH ×2 (09:04→17:03)
[2019-01-13] MEDS: AMLODIPINE 10MG TABLET PO SCH (09:04)
[2019-01-13 09:40] LABS: PHOSPHORUS 2.7 mg/dL (2.5-4.9)
[2019-01-13 12:21] VITALS: BP_SYST 151; BP_SYST 160; BP_DIAS 75; BP_DIAS 76
[2019-01-13] MEDS: TRAMADOL 50MG TABLET PO PRN ×2 (13:40→21:27)
[2019-01-13] MEDS ORDERED: CITRIC ACID/SODIUM CITRATE SOLN 30ML UDC PO PRN (14:00)
[2019-01-13] MEDS ORDERED: MAGNESIUM CITRATE 300ML SOLUTION PO PRN (15:00)
[2019-01-13 16:13] VITALS: BP 132/62
[2019-01-13] MEDS: MONTELUKAST SODIUM 10MG TABLET PO SCH (17:03)
[2019-01-13 20:00] VITALS: BP_SYST 127; BP_SYST 136; BP_DIAS 56; BP_DIAS 59
[2019-01-14] VITALS (7 sets, daily range): BP systolic 98–138; BP diastolic 55–81
[2019-01-14] MEDS: TRAMADOL 50MG TABLET PO PRN ×2 (03:29→22:11)
[2019-01-14 05:59] LABS: CHLORIDE 102 mEq/L (98-107)
[2019-01-14 06:08] LABS: PHOSPHORUS 2.4 mg/dL (2.5-4.9)
[2019-01-14] MEDS: BLOOD SUGAR DIAGNOSTIC STRIP TEST SCH ×4 (06:35→21:00)
[2019-01-14] MEDS: INSULIN LISPRO 100 UNITS/ML SUBCUT SCH ×4 (07:56→22:05)
[2019-01-14] MEDS: LEVOTHYROXINE SODIUM 25MCG TABLET PO SCH (08:58)
[2019-01-14] MEDS: DOCUSATE SODIUM 100MG CAPSULE PO SCH ×2 (08:58→16:50)
[2019-01-14] MEDS: POTASSIUM BICARB/CIT ACID 25 MEQ TABLET.EFF PO SCH ×2 (08:58→16:51)
[2019-01-14] MEDS: SERTRALINE HCL 25MG TABLET PO SCH (08:59)
[2019-01-14] MEDS: LOSARTAN POTASSIUM 25 MG TABLET PO SCH (08:59)
[2019-01-14] MEDS: AMLODIPINE 10MG TABLET PO SCH (08:59)
[2019-01-14] MEDS: MONTELUKAST SODIUM 10MG TABLET PO SCH (16:50)
[2019-01-14] MEDS ORDERED: POTASSIUM PHOS,M-BASIC-D-BASIC 10 MMOL in DEXT 5% WATER 246.6667 ML IV SCH (18:30)
[2019-01-15] VITALS: BP 131/82
[2019-01-15 04:00] VITALS: BP_SYST 122; BP_SYST 146; BP_DIAS 84
[2019-01-15] MEDS: TRAMADOL 50MG TABLET PO PRN ×3 (06:40→20:39)
[2019-01-15] MEDS: BLOOD SUGAR DIAGNOSTIC STRIP TEST SCH ×4 (06:52→20:39)
[2019-01-15 07:18] LABS: PHOSPHORUS 3.3 mg/dL (2.5-4.9)
[2019-01-15 08:00] VITALS: BP 126/63
[2019-01-15 09:14] LABS: CHLORIDE 102 mEq/L (98-107)
[2019-01-15 09:21] LABS: PHOSPHORUS 3.5 mg/dL (2.5-4.9)
[2019-01-15] MEDS: POTASSIUM BICARB/CIT ACID 25 MEQ TABLET.EFF PO SCH ×2 (10:09→17:25)
[2019-01-15] MEDS: SERTRALINE HCL 25MG TABLET PO SCH (10:09)
[2019-01-15] MEDS: DOCUSATE SODIUM 100MG CAPSULE PO SCH ×2 (10:10→17:25)
[2019-01-15] MEDS: LOSARTAN POTASSIUM 25 MG TABLET PO SCH (10:10)
[2019-01-15] MEDS: AMLODIPINE 10MG TABLET PO SCH (10:10)
[2019-01-15] MEDS: LEVOTHYROXINE SODIUM 25MCG TABLET PO SCH (10:10)
[2019-01-15] MEDS: INSULIN LISPRO 100 UNITS/ML SUBCUT SCH ×4 (10:12→20:42)
[2019-01-15 12:00] VITALS: BP 110/79
[2019-01-15 16:00] VITALS: BP 116/86
[2019-01-15] MEDS: MONTELUKAST SODIUM 10MG TABLET PO SCH (17:26)
[2019-01-15 20:00] VITALS: BP_SYST 112; BP_SYST 135; BP_DIAS 60; BP_DIAS 69
[2019-01-16 00:05] VITALS: BP 106/61
[2019-01-16 04:00] VITALS: BP 114/85
[2019-01-16] MEDS: INSULIN LISPRO 100 UNITS/ML SUBCUT SCH ×2 (07:43→12:35)
[2019-01-16] MEDS: BLOOD SUGAR DIAGNOSTIC STRIP TEST SCH ×2 (07:43→12:35)
[2019-01-16 08:00] VITALS: BP 114/78
[2019-01-16] MEDS: POTASSIUM BICARB/CIT ACID 25 MEQ TABLET.EFF PO SCH (09:00)
[2019-01-16] MEDS: LOSARTAN POTASSIUM 25 MG TABLET PO SCH (09:01)
[2019-01-16] MEDS: SERTRALINE HCL 25MG TABLET PO SCH (09:01)
[2019-01-16] MEDS: DOCUSATE SODIUM 100MG CAPSULE PO SCH (09:01)
[2019-01-16] MEDS: LEVOTHYROXINE SODIUM 25MCG TABLET PO SCH (09:01)
[2019-01-16] MEDS: AMLODIPINE 10MG TABLET PO SCH (09:01)
[2019-01-16 12:00] VITALS: BP 100/79
[2019-01-16 13:34] LABS: BASOPHILS % 0.5 % (0.0-2.0); HEMATOCRIT. 41.5 % (36.0-48.0); HEMOGLOBIN. 13.7 g/dL (12.0-16.0); LYMPHOCYTES % 23.8 % (20.0-50.0); MEAN CORPUSCULAR VOLUME 90.7 fL (81.0-99.0); MEAN PLATELET VOLUME 8.5 fl (7.4-10.4); MONOCYTES % 8.2 % (2.0-8.0); NEUTROPHILS % 65.5 % (40.0-76.0); PLATELET 294 x1000/uL (130-400); RED BLOOD CELL COUNT 4.58 mill/uL (4.2-5.4); RED CELL DISTRIBUTION WIDTH 13.7 % (11.6-14.6)
[2019-01-16 13:53] LABS: CHLORIDE 99 mEq/L (98-107)
[2019-01-16 15:31] VITALS: BP 100/79
[2019-01-16 16:00] VITALS: BP 142/64
[2019-02-10] MEDS ORDERED: SITA100T11 PO (08:52)
== END 2019-01-16 17:35 | disposition home health service (06) | DRG 554 ==
LOC: ER 15:39 → 7WST 19:55 → EDBEDREQ 19:57 → EDBEDREQTM 19:57 → ENRESERV 21:27
PROVIDERS: ADMIT Internal Medicine; ATTEND Internal Medicine
DX: M16.0 Bilateral primary osteoarthritis of hip (principal); E87.6 Hypokalemia; F41.0 Panic disorder [episodic paroxysmal anxiety]; F41.1 Generalized anxiety disorder; R29.6 Repeated falls; Z96.653 Presence of artificial knee joint, bilateral; I10 Essential (primary) hypertension; E11.9 Type 2 diabetes mellitus without complications; M48.00 Spinal stenosis, site unspecified; S00.83XA Contusion of other part of head, initial encounter; W18.39XA Other fall on same level, initial encounter; E03.9 Hypothyroidism, unspecified; G89.29 Other chronic pain; Z79.84 Long term (current) use of oral hypoglycemic drugs; I69.320 Aphasia following cerebral infarction; Z79.899 Other long term (current) drug therapy; Z86.14 Personal history of Methicillin resistant Staphylococcus aureus infection; Z88.5 Allergy status to narcotic agent; Z79.890 Hormone replacement therapy; Z85.3 Personal history of malignant neoplasm of breast; Z95.0 Presence of cardiac pacemaker; Z90.49 Acquired absence of other specified parts of digestive tract; Z90.710 Acquired absence of both cervix and uterus; Z88.8 Allergy status to other drugs, medicaments and biological substances; Z92.21 Personal history of antineoplastic chemotherapy; Y93.89 Activity, other specified; Y92.89 Other specified places as the place of occurrence of the external cause; Y99.8 Other external cause status
CPT/HCPCS: 36415; 70486; 71045; 74176; 80048; 80061; 80069; 80076; 82024; 82088; 82310; 82533; 82565; 82607; 82962; 83036; 83735; 83880; 84100; 84443; 84484; 84520; 84550; 85651; 93005; 93306; 93880; 93970; 96374; 96375; 97116; 97162; 97166; 97530; 99285; J1815; J2270; J2405; J3490; J7060

== ENCOUNTER 2019-04-05 17:47 | Inpatient (IN) | payer MEDICARE, MEDICAID ==
[~2019-04-05] VITALS: Ht 162.6 cm; Wt 59.9 kg
[~2019-04-05 17:47] MED LIST changes: -POTA-81 PO
[2019-04-05] MEDS ORDERED: ASPIRIN 81MG TABLET PO ONE (19:15)
[2019-04-05 19:42] LABS: BASOPHILS % 0.5 % (0.0-2.0); EOSINOPHILS % 1.3 % (0.0-5.0); HEMOGLOBIN. 11.6 g/dL (12.0-16.0); LYMPHOCYTES % 29.4 % (20.0-50.0); MEAN CORPUSCULAR HEMOGLOBIN 30.4 pg (28.0-32.0); MEAN CORPUSCULAR VOLUME 91.7 fL (81.0-99.0); MEAN PLATELET VOLUME 8.5 fl (7.4-10.4); MONOCYTES % 8.6 % (2.0-8.0); NEUTROPHILS % 60.2 % (40.0-76.0); PLATELET 185 x1000/uL (130-400); RED BLOOD CELL COUNT 3.82 mill/uL (4.2-5.4); RED CELL DISTRIBUTION WIDTH 14.3 % (11.6-14.6)
[2019-04-05 19:46] LABS: CHLORIDE 107 mEq/L (98-107)
[2019-04-05 19:50] LABS: D-DIMER 0.44 mg/L FEU (<0.50); INR 1.1; PARTIAL THROMBOPLASTIN TIME 30.8 sec (23.4-31.0); PROTHROMBIN TIME 11.2 sec (9.6-11.0)
[2019-04-05] MEDS ORDERED: ONDANSETRON HCL 4MG/2ML INJ IV STA (20:55)
[2019-04-05] MEDS ORDERED: MORPHINE SULFATE 4 MG/ML CPJ (NOT FOR IM USE) IV STA (20:55)
[2019-04-06 09:50] VITALS: BP 131/94
[2019-04-06] MEDS ORDERED: TRAMADOL 50MG TABLET PO PRN (11:15)
[2019-04-06] MEDS ORDERED: DOCUSATE SODIUM 100MG CAPSULE PO PRN (11:15)
[2019-04-06] MEDS ORDERED: ONDANSETRON HCL 4MG/2ML INJ IV PRN (11:45)
[2019-04-06 12:00] VITALS: BP 134/54
[2019-04-06] MEDS: ACETAMINOPHEN 325MG TABLET PO PRN ×2 (12:50→21:41)
[2019-04-06] MEDS: AMLODIPINE 10MG TABLET PO SCH (12:54)
[2019-04-06] MEDS: LEVETIRACETAM 500MG TABLET PO SCH ×2 (12:54→21:41)
[2019-04-06 13:14] VITALS: BP 134/64
[2019-04-06 16:00] VITALS: BP 104/41
[2019-04-06] MEDS ORDERED: REGADENOSON 0.4 MG/5 ML IV NR (16:00)
[2019-04-06 16:42] LABS: PHOSPHORUS 3.1 mg/dL (2.5-4.9)
[2019-04-06 16:43] LABS: CREATINE KINASE 210 IU/L (26-192)
[2019-04-06 16:44] LABS: CREATINE KINASE MB FRACTION 2.8 ng/mL (0.5-3.6); T4 FREE 0.87 ng/dL (0.76-1.46)
[2019-04-06] MEDS: ASPIRIN 81MG EC TABLET PO SCH (16:47)
[2019-04-06] MEDS: LINAGLIPTIN 5MG TABLET PO SCH (16:47)
[2019-04-06] MEDS: ENOXAPARIN 40MG/0.4ML SYR SUBCUT SCH (16:50)
[2019-04-06] MEDS ORDERED: DEXTROSE 50% WATER 50ML SYRINGE IV PRN (17:15)
[2019-04-06] MEDS: BLOOD SUGAR DIAGNOSTIC STRIP TEST SCH ×2 (18:03→21:20)
[2019-04-06] MEDS: INSULIN LISPRO 100 UNITS/ML SUBCUT SCH ×2 (18:19→21:00)
[2019-04-06 19:50] LABS: HEPATITIS B SURFACE ANTIGEN NEGATIVE
[2019-04-06 20:18] LABS: HEPATITIS A AB IGM NEGATIVE (NEGATIVE)
[2019-04-06 20:49] VITALS: BP 100/48
[2019-04-06] MEDS ORDERED: MEDICATION NOT ON FORMULARY EA (Sitagliptin Phosphate (Januvia) 100 MG) PO SCH (21:00)
[2019-04-06] MEDS: MONTELUKAST SODIUM 10MG TABLET PO SCH (21:41)
[2019-04-06] MEDS: ATORVASTATIN CALCIUM 20MG TABLET PO SCH (21:41)
[2019-04-07 00:12] LABS: CREATINE KINASE 159 IU/L (26-192)
[2019-04-07 00:13] LABS: CREATINE KINASE MB FRACTION 1.8 ng/mL (0.5-3.6)
[2019-04-07 00:29] VITALS: BP 104/52
[2019-04-07 04:00] VITALS: BP 104/55
[2019-04-07] MEDS: INSULIN LISPRO 100 UNITS/ML SUBCUT SCH ×4 (06:08→21:00)
[2019-04-07] MEDS: BLOOD SUGAR DIAGNOSTIC STRIP TEST SCH ×4 (06:08→21:00)
[2019-04-07 06:43] LABS: BASOPHILS % 0.5 % (0.0-2.0); EOSINOPHILS % 1.6 % (0.0-5.0); HEMATOCRIT. 35.1 % (36.0-48.0); HEMOGLOBIN. 11.8 g/dL (12.0-16.0); LYMPHOCYTES % 29.7 % (20.0-50.0); MEAN CORPUSCULAR HEMOGLOBIN 30.8 pg (28.0-32.0); MEAN CORPUSCULAR VOLUME 91.9 fL (81.0-99.0); MEAN PLATELET VOLUME 8.5 fl (7.4-10.4); MONOCYTES % 10.2 % (2.0-8.0); PLATELET 183 x1000/uL (130-400); RED BLOOD CELL COUNT 3.82 mill/uL (4.2-5.4); RED CELL DISTRIBUTION WIDTH 13.7 % (11.6-14.6)
[2019-04-07 06:58] LABS: CHLORIDE 105 mEq/L (98-107)
[2019-04-07 09:00] VITALS: BP 130/58
[2019-04-07] MEDS ORDERED: LOSARTAN POTASSIUM 50 MG TABLET PO NR (09:00)
[2019-04-07] MEDS ORDERED: ERGOCALCIFEROL 50000UNITS CAPSULE PO SCH (09:00)
[2019-04-07] MEDS: LINAGLIPTIN 5MG TABLET PO SCH (10:20)
[2019-04-07] MEDS: SERTRALINE HCL 50MG TABLET PO SCH (10:20)
[2019-04-07] MEDS: ASPIRIN 81MG EC TABLET PO SCH (10:20)
[2019-04-07] MEDS: LEVETIRACETAM 500MG TABLET PO SCH ×2 (10:21→23:05)
[2019-04-07] MEDS: AMLODIPINE 10MG TABLET PO SCH (10:21)
[2019-04-07] MEDS ORDERED: REGADENOSON 0.4 MG/5 ML IV ONE (11:29)
[2019-04-07 12:00] VITALS: BP 105/64
[2019-04-07 16:00] VITALS: BP 125/56
[2019-04-07] MEDS: ENOXAPARIN 40MG/0.4ML SYR SUBCUT SCH (17:38)
[2019-04-07 20:00] VITALS: BP 106/52
[2019-04-07] MEDS: ATORVASTATIN CALCIUM 20MG TABLET PO SCH (23:05)
[2019-04-07] MEDS: MONTELUKAST SODIUM 10MG TABLET PO SCH (23:05)
[2019-04-08 00:37] VITALS: BP 110/58
[2019-04-08] MEDS ORDERED: HYDROMORPHONE HCL/PF 2MG/ML CPJ IV NR (01:00)
[2019-04-08 04:00] VITALS: BP 117/49
[2019-04-08 07:05] LABS: BASOPHILS % 0.4 % (0.0-2.0); EOSINOPHILS % 1.2 % (0.0-5.0); HEMATOCRIT. 35.8 % (36.0-48.0); HEMOGLOBIN. 11.7 g/dL (12.0-16.0); MEAN CORPUSCULAR HEMOGLOBIN 30.1 pg (28.0-32.0); MEAN CORPUSCULAR VOLUME 91.7 fL (81.0-99.0); MEAN PLATELET VOLUME 8.9 fl (7.4-10.4); MONOCYTES % 10.2 % (2.0-8.0); NEUTROPHILS % 58.2 % (40.0-76.0); PLATELET 185 x1000/uL (130-400); RED CELL DISTRIBUTION WIDTH 13.9 % (11.6-14.6)
[2019-04-08] MEDS: INSULIN LISPRO 100 UNITS/ML SUBCUT SCH (07:50)
[2019-04-08 08:00] VITALS: BP 115/61
[2019-04-08] MEDS: BLOOD SUGAR DIAGNOSTIC STRIP TEST SCH (08:01)
[2019-04-08 08:32] LABS: CHLORIDE 105 mEq/L (98-107)
[2019-04-08] MEDS: ASPIRIN 81MG EC TABLET PO SCH (09:11)
[2019-04-08] MEDS: LEVETIRACETAM 500MG TABLET PO SCH (09:11)
[2019-04-08] MEDS: LINAGLIPTIN 5MG TABLET PO SCH (09:12)
[2019-04-08] MEDS: AMLODIPINE 10MG TABLET PO SCH (09:12)
[2019-04-08] MEDS: SERTRALINE HCL 50MG TABLET PO SCH (09:12)
[2019-04-08 12:36] VITALS: BP 125/54
== END 2019-04-08 13:25 | disposition home health service (06) | DRG 392 ==
LOC: ER 17:47 → 6WST 20:51 → ENRESERV 04-06 08:28
PROVIDERS: ADMIT Internal Medicine; ATTEND Internal Medicine
DX: K21.9 Gastro-esophageal reflux disease without esophagitis (principal); I49.5 Sick sinus syndrome; E78.5 Hyperlipidemia, unspecified; E11.9 Type 2 diabetes mellitus without complications; I45.10 Unspecified right bundle-branch block; K29.70 Gastritis, unspecified, without bleeding; E03.9 Hypothyroidism, unspecified; F03.90 Unspecified dementia, unspecified severity, without behavioral disturbance, psychotic disturbance, mood disturbance, and anxiety; R07.89 Other chest pain; R29.6 Repeated falls; Z96.653 Presence of artificial knee joint, bilateral; B19.20 Unspecified viral hepatitis C without hepatic coma; G89.29 Other chronic pain; M16.0 Bilateral primary osteoarthritis of hip; I11.9 Hypertensive heart disease without heart failure; K57.90 Diverticulosis of intestine, part unspecified, without perforation or abscess without bleeding; I25.10 Atherosclerotic heart disease of native coronary artery without angina pectoris; Z79.899 Other long term (current) drug therapy; Z79.82 Long term (current) use of aspirin; Z79.84 Long term (current) use of oral hypoglycemic drugs; Z85.3 Personal history of malignant neoplasm of breast; Z90.710 Acquired absence of both cervix and uterus; Z95.0 Presence of cardiac pacemaker; Z88.5 Allergy status to narcotic agent; Z88.8 Allergy status to other drugs, medicaments and biological substances
CPT/HCPCS: 36415; 71045; 78452; 80048; 80061; 80076; 82550; 82553; 82962; 83036; 83540; 83550; 83735; 83880; 84100; 84436; 84439; 84443; 84480; 84481; 84484; 85379; 85651; 86705; 86709; 86803; 87340; 93005; 93017; 93306; 99285; A9500; J1170; J1650; J1815; J2270; J2405; J2785

== ENCOUNTER 2019-08-01 19:05 | Inpatient (IN) | payer MEDICARE, MEDICAID ==
[~2019-08-01] VITALS: Ht 162.6 cm; Wt 66.7 kg
[~2019-08-01 19:05] MED LIST changes: +NALO25TA PO; +NATURE MADE PO; +POTA20TA82 PO; +SPIR25TA6 PO
[2019-08-01 20:00] VITALS: BP_SYST 127; BP_DIAS 55; BP_DIAS 88
[2019-08-01] MEDS ORDERED: MAGNESIUM HYDROXIDE 400MG/5ML 30ML UDC PO PRN (21:30)
[2019-08-01] MEDS ORDERED: TRAMADOL 50MG TABLET PO PRN (21:30)
[2019-08-01] MEDS ORDERED: ONDANSETRON HCL 4MG TABLET PO PRN (21:30)
[2019-08-01] MEDS ORDERED: DIPHENHYDRAMINE 25MG CAPSULE PO PRN (21:30)
[2019-08-01] MEDS ORDERED: DEXTROSE 50% WATER 50ML SYRINGE IV PRN (21:30)
[2019-08-01] MEDS ORDERED: ACETAMINOPHEN 325MG TABLET PO PRN (21:30)
[2019-08-01] MEDS ORDERED: ZOLPIDEM TARTRATE 5MG TABLET PO PRN (21:30)
[2019-08-01] MEDS: INSULIN LISPRO 100 UNITS/ML SUBCUT SCH (22:20)
[2019-08-02] MEDS: HYDROCODONE/ACETAMINOPHEN 5/325MG TABLET PO PRN ×4 (00:18→21:02)
[2019-08-02] MEDS ORDERED: NA PHOS,M-B/NA PHOS,DI-BA ENEMA 118ML PR NR (02:15)
[2019-08-02] MEDS: BLOOD SUGAR DIAGNOSTIC STRIP TEST SCH ×4 (06:29→21:02)
[2019-08-02] MEDS: LEVOTHYROXINE SODIUM 100MCG TABLET PO SCH (06:29)
[2019-08-02 08:00] VITALS: BP 126/45
[2019-08-02] MEDS: ENOXAPARIN 40MG/0.4ML SYR SUBCUT SCH (08:39)
[2019-08-02] MEDS: DOCUSATE SODIUM 100MG CAPSULE PO SCH ×2 (08:40→17:05)
[2019-08-02] MEDS: FAMOTIDINE 20MG TABLET PO SCH ×2 (08:40→21:01)
[2019-08-02] MEDS: MULTIVITAMINS,THER W-MINERALS TABLET PO SCH (08:40)
[2019-08-02] MEDS: INSULIN LISPRO 100 UNITS/ML SUBCUT SCH ×3 (12:50→21:00)
[2019-08-02 20:00] VITALS: BP 152/63
[2019-08-03] MEDS: LEVOTHYROXINE SODIUM 100MCG TABLET PO SCH (06:26)
[2019-08-03] MEDS: HYDROCODONE/ACETAMINOPHEN 5/325MG TABLET PO PRN ×4 (06:27→22:01)
[2019-08-03] MEDS: INSULIN LISPRO 100 UNITS/ML SUBCUT SCH ×4 (06:28→21:00)
[2019-08-03] MEDS: BLOOD SUGAR DIAGNOSTIC STRIP TEST SCH ×4 (06:28→21:00)
[2019-08-03 08:49] VITALS: BP 131/58
[2019-08-03] MEDS: MULTIVITAMINS,THER W-MINERALS TABLET PO SCH (09:06)
[2019-08-03] MEDS: ENOXAPARIN 40MG/0.4ML SYR SUBCUT SCH (09:06)
[2019-08-03] MEDS: FAMOTIDINE 20MG TABLET PO SCH ×2 (09:06→21:59)
[2019-08-03] MEDS: DOCUSATE SODIUM 100MG CAPSULE PO SCH ×2 (09:06→17:49)
[2019-08-03] MEDS: MAGNESIUM/ALUMINUM HYDROXIDE/SIMETHICONE 30ML UDC PO PRN (17:49)
[2019-08-03] MEDS ORDERED: LACTULOSE 20G/30ML UDC PO PRN (19:00)
[2019-08-03] MEDS ORDERED: BISACODYL 5MG TABLET PO PRN (19:00)
[2019-08-03 20:00] VITALS: BP 120/64
[2019-08-04] MEDS: HYDROCODONE/ACETAMINOPHEN 5/325MG TABLET PO PRN ×4 (04:30→21:33)
[2019-08-04] MEDS: BLOOD SUGAR DIAGNOSTIC STRIP TEST SCH ×4 (05:50→21:32)
[2019-08-04] MEDS: LEVOTHYROXINE SODIUM 100MCG TABLET PO SCH (06:32)
[2019-08-04] MEDS: INSULIN LISPRO 100 UNITS/ML SUBCUT SCH ×4 (06:34→21:35)
[2019-08-04 08:00] VITALS: BP 115/41
[2019-08-04] MEDS: DOCUSATE SODIUM 100MG CAPSULE PO SCH ×2 (09:29→17:58)
[2019-08-04] MEDS: FAMOTIDINE 20MG TABLET PO SCH ×2 (09:29→21:31)
[2019-08-04] MEDS: MULTIVITAMINS,THER W-MINERALS TABLET PO SCH (09:29)
[2019-08-04] MEDS: ENOXAPARIN 40MG/0.4ML SYR SUBCUT SCH (09:30)
[2019-08-04 13:44] VITALS: BP 114/53
[2019-08-04 20:00] VITALS: BP 123/45
[2019-08-05] MEDS: LEVOTHYROXINE SODIUM 100MCG TABLET PO SCH (06:46)
[2019-08-05] MEDS: INSULIN LISPRO 100 UNITS/ML SUBCUT SCH ×5 (06:47→22:05)
[2019-08-05] MEDS: BLOOD SUGAR DIAGNOSTIC STRIP TEST SCH ×4 (07:07→21:47)
[2019-08-05] MEDS: HYDROCODONE/ACETAMINOPHEN 5/325MG TABLET PO PRN ×3 (07:08→23:28)
[2019-08-05 07:23] LABS: BASOPHILS % 0.3 % (0.0-2.0); EOSINOPHILS % 2.9 % (0.0-5.0); HEMATOCRIT. 28.4 % (36.0-48.0); HEMOGLOBIN. 9.4 g/dL (12.0-16.0); LYMPHOCYTES % 16.6 % (20.0-50.0); MEAN CORPUSCULAR VOLUME 90.3 fL (81.0-99.0); MEAN PLATELET VOLUME 7.9 fl (7.4-10.4); MONOCYTES % 9.1 % (2.0-8.0); NEUTROPHILS % 71.1 % (40.0-76.0); PLATELET 321 x1000/uL (130-400); RED BLOOD CELL COUNT 3.14 mill/uL (4.2-5.4); RED CELL DISTRIBUTION WIDTH 13.5 % (11.6-14.6)
[2019-08-05 08:09] VITALS: BP 149/62
[2019-08-05 08:41] LABS: CHLORIDE 102 mEq/L (98-107)
[2019-08-05] MEDS: FAMOTIDINE 20MG TABLET PO SCH ×3 (09:00→21:58)
[2019-08-05] MEDS: ENOXAPARIN 40MG/0.4ML SYR SUBCUT SCH (09:51)
[2019-08-05] MEDS: MULTIVITAMINS,THER W-MINERALS TABLET PO SCH (09:51)
[2019-08-05] MEDS: DOCUSATE SODIUM 100MG CAPSULE PO SCH ×2 (09:51→18:15)
[2019-08-05] MEDS: LACTULOSE 20G/30ML UDC PO SCH (15:45)
[2019-08-05 20:00] VITALS: BP 133/52
[2019-08-05] MEDS: MAGNESIUM/ALUMINUM HYDROXIDE/SIMETHICONE 30ML UDC PO PRN ×2 (21:47→21:58)
[2019-08-06] MEDS: LEVOTHYROXINE SODIUM 100MCG TABLET PO SCH (06:27)
[2019-08-06] MEDS: HYDROCODONE/ACETAMINOPHEN 5/325MG TABLET PO PRN ×3 (06:28→21:14)
[2019-08-06] MEDS: BLOOD SUGAR DIAGNOSTIC STRIP TEST SCH ×4 (06:29→21:12)
[2019-08-06 08:00] VITALS: BP 137/70
[2019-08-06] MEDS: LACTULOSE 20G/30ML UDC PO SCH (09:00)
[2019-08-06] MEDS: FAMOTIDINE 20MG TABLET PO SCH ×2 (09:06→21:12)
[2019-08-06] MEDS: DOCUSATE SODIUM 100MG CAPSULE PO SCH ×2 (09:06→16:58)
[2019-08-06] MEDS: MULTIVITAMINS,THER W-MINERALS TABLET PO SCH (09:06)
[2019-08-06] MEDS: ENOXAPARIN 40MG/0.4ML SYR SUBCUT SCH (09:07)
[2019-08-06] MEDS: INSULIN LISPRO 100 UNITS/ML SUBCUT SCH ×3 (12:27→21:00)
[2019-08-06 20:00] VITALS: BP 130/76
[2019-08-06] MEDS: MAGNESIUM/ALUMINUM HYDROXIDE/SIMETHICONE 30ML UDC PO PRN (21:19)
[2019-08-06] MEDS ORDERED: HYDROCODONE/ACETAMINOPHEN 5/325MG TABLET PO PRN (23:15)
[2019-08-06] MEDS ORDERED: ZOLPIDEM TARTRATE 5MG TABLET PO PRN (23:15)
[2019-08-06] MEDS ORDERED: TRAMADOL 50MG TABLET PO PRN (23:15)
[2019-08-07] MEDS: HYDROCODONE/ACETAMINOPHEN 5/325MG TABLET PO PRN ×3 (05:33→23:16)
[2019-08-07] MEDS: BLOOD SUGAR DIAGNOSTIC STRIP TEST SCH ×4 (06:29→21:00)
[2019-08-07] MEDS: LEVOTHYROXINE SODIUM 100MCG TABLET PO SCH (06:30)
[2019-08-07] MEDS: INSULIN LISPRO 100 UNITS/ML SUBCUT SCH ×4 (06:38→21:34)
[2019-08-07 07:38] VITALS: BP 119/68
[2019-08-07] MEDS: DOCUSATE SODIUM 100MG CAPSULE PO SCH ×2 (08:18→16:46)
[2019-08-07] MEDS: LACTULOSE 20G/30ML UDC PO SCH (08:18)
[2019-08-07] MEDS: FAMOTIDINE 20MG TABLET PO SCH ×2 (08:18→21:18)
[2019-08-07] MEDS: ENOXAPARIN 40MG/0.4ML SYR SUBCUT SCH (08:18)
[2019-08-07] MEDS: MULTIVITAMINS,THER W-MINERALS TABLET PO SCH (08:18)
[2019-08-07 20:00] VITALS: BP 149/58
[2019-08-08] MEDS: LEVOTHYROXINE SODIUM 100MCG TABLET PO SCH (06:12)
[2019-08-08] MEDS: HYDROCODONE/ACETAMINOPHEN 5/325MG TABLET PO PRN (06:14)
[2019-08-08] MEDS: BLOOD SUGAR DIAGNOSTIC STRIP TEST SCH (06:34)
[2019-08-08] MEDS: INSULIN LISPRO 100 UNITS/ML SUBCUT SCH (06:38)
[2019-08-08 08:18] VITALS: BP 165/60
[2019-08-08] MEDS: DOCUSATE SODIUM 100MG CAPSULE PO SCH (08:34)
[2019-08-08] MEDS: MULTIVITAMINS,THER W-MINERALS TABLET PO SCH (08:34)
[2019-08-08] MEDS: FAMOTIDINE 20MG TABLET PO SCH (08:34)
[2019-08-08] MEDS: LACTULOSE 20G/30ML UDC PO SCH (08:35)
[2019-08-08] MEDS: ENOXAPARIN 40MG/0.4ML SYR SUBCUT SCH (08:35)
[2019-08-08 10:15] VITALS: BP 149/47
[2019-08-08 10:29] VITALS: BP 149/47
== END 2019-08-08 11:30 | disposition home health service (06) | DRG 554 ==
PROVIDERS: ADMIT Psychiatry & Neurology Neurology; ATTEND Internal Medicine
DX: M16.12 Unilateral primary osteoarthritis, left hip (principal); K57.92 Diverticulitis of intestine, part unspecified, without perforation or abscess without bleeding; F33.1 Major depressive disorder, recurrent, moderate; I10 Essential (primary) hypertension; E11.9 Type 2 diabetes mellitus without complications; I25.10 Atherosclerotic heart disease of native coronary artery without angina pectoris; E78.00 Pure hypercholesterolemia, unspecified; E03.9 Hypothyroidism, unspecified; Z96.653 Presence of artificial knee joint, bilateral; Z96.642 Presence of left artificial hip joint; B18.2 Chronic viral hepatitis C; F09 Unspecified mental disorder due to known physiological condition; G31.84 Mild cognitive impairment of uncertain or unknown etiology; E78.5 Hyperlipidemia, unspecified; F32.9 Major depressive disorder, single episode, unspecified; Z90.49 Acquired absence of other specified parts of digestive tract; Z88.0 Allergy status to penicillin; Z88.6 Allergy status to analgesic agent; Z90.710 Acquired absence of both cervix and uterus; Z85.3 Personal history of malignant neoplasm of breast; Z88.8 Allergy status to other drugs, medicaments and biological substances; Z86.14 Personal history of Methicillin resistant Staphylococcus aureus infection; Z79.899 Other long term (current) drug therapy; Z88.5 Allergy status to narcotic agent
CPT/HCPCS: 36415; 80048; 82962; 85025; 93970; 97110; 97116; 97162; 97166; 97530; 97535; J1650; J1815

== ENCOUNTER 2019-08-17 11:23 | Inpatient (IN) | payer MEDICARE, MEDICAID ==
[~2019-08-17] VITALS: Ht 162.6 cm; Wt 61.9 kg
[2019-08-17] MEDS ORDERED: VANCOMYCIN 1 G PREMIX 200 ML IV SCH (12:15)
[2019-08-17] MEDS ORDERED: MORPHINE SULFATE 4 MG/ML CPJ (NOT FOR IM USE) IV ONE (12:45)
[2019-08-17] MEDS ORDERED: ONDANSETRON HCL 4MG/2ML INJ IV ONE (12:45)
[2019-08-17 13:33] LABS: CHLORIDE 97 mEq/L (98-107)
[2019-08-17 13:34] LABS: INR 1.1
[2019-08-17 13:36] LABS: BASOPHILS % 0.3 % (0.0-2.0); EOSINOPHILS % 0.1 % (0.0-5.0); HEMATOCRIT. 35.9 % (36.0-48.0); HEMOGLOBIN. 11.6 g/dL (12.0-16.0); LYMPHOCYTES % 9.4 % (20.0-50.0); MEAN CORPUSCULAR HEMOGLOBIN 29.3 pg (28.0-32.0); MEAN CORPUSCULAR VOLUME 90.6 fL (81.0-99.0); MEAN PLATELET VOLUME 7.6 fl (7.4-10.4); MONOCYTES % 7.4 % (2.0-8.0); NEUTROPHILS % 82.8 % (40.0-76.0); PLATELET 393 x1000/uL (130-400); RED BLOOD CELL COUNT 3.96 mill/uL (4.2-5.4); RED CELL DISTRIBUTION WIDTH 14.6 % (11.6-14.6)
[2019-08-17 15:23] LABS: CLARITY URINE CLEAR (CLEAR); COLOR URINE YELLOW (YELLOW); KETONES URINE NEGATIVE (NEGATIVE); LEUKOCYTE ESTERASE URINE 2+ (NEGATIVE); NITRITE URINE NEGATIVE (NEGATIVE); OCCULT BLOOD URINE NEGATIVE (NEGATIVE); PH URINE 5.5 (4.5-8.0); PROTEIN URINE NEGATIVE (NEGATIVE); SPECIFIC GRAVITY URINE 1.008 (1.005-1.030); UROBILINOGEN URINE 0.2 E.U./dL (0.2-1.0)
[2019-08-17 16:00] VITALS: BP 129/66
[2019-08-17 17:26] VITALS: BP 132/75
[2019-08-17] MEDS ORDERED: DEXTROSE 50% WATER 50ML SYRINGE IV PRN (19:30)
[2019-08-17] MEDS: HYDROCODONE/ACETAMINOPHEN 5/325MG TABLET PO PRN ×2 (19:31→23:44)
[2019-08-17 20:00] VITALS: BP 152/64
[2019-08-17] MEDS: MEROPENEM 500MG in NORMAL SALINE 50ML IV SCH (20:57)
[2019-08-17] MEDS ORDERED: MEROPENEM 1,000 MG in SODIUM CHLORIDE 0.9% 100 ML IV SCH (21:00)
[2019-08-17] MEDS: BLOOD SUGAR DIAGNOSTIC STRIP TEST SCH (21:23)
[2019-08-17] MEDS: INSULIN LISPRO 100 UNITS/ML SUBCUT SCH (21:25)
[2019-08-17] MEDS ORDERED: DIPHENHYDRAMINE 50MG/ML VIAL IV PRN (23:45)
[2019-08-17] MEDS ORDERED: GUAIFENESIN 200MG/10ML SUGAR FREE UDC PO PRN (23:45)
[2019-08-17] MEDS ORDERED: ZOLPIDEM TARTRATE 5MG TABLET PO PRN (23:45)
[2019-08-17] MEDS ORDERED: MAGNESIUM/ALUMINUM HYDROXIDE/SIMETHICONE 30ML UDC PO PRN (23:45)
[2019-08-17] MEDS ORDERED: ACETAMINOPHEN 325MG TABLET PO PRN (23:45)
[2019-08-17] MEDS ORDERED: IPRATROPIUM/ALBUTEROL 0.5-3(2.5)MG/3ML NEB HHN PRN (23:45)
[2019-08-17] MEDS ORDERED: ONDANSETRON HCL 4MG/2ML INJ IV PRN (23:45)
[2019-08-18] VITALS: BP 123/53
[2019-08-18] MEDS ORDERED: LACTULOSE 20G/30ML UDC PO PRN
[2019-08-18] MEDS ORDERED: HYDROCODONE/ACETAMINOPHEN 5/325MG TABLET PO PRN ×3 (00:14→19:00)
[2019-08-18] MEDS: SODIUM CHLORIDE 0.9% 1,000 ML IV SCH (00:40)
[2019-08-18 04:00] VITALS: BP 138/85
[2019-08-18] MEDS: SODIUM CHLORIDE 0.9% INJ 3ML FLUSH IVF SCH ×3 (06:12→20:44)
[2019-08-18] MEDS: BLOOD SUGAR DIAGNOSTIC STRIP TEST SCH ×4 (06:12→21:00)
[2019-08-18] MEDS: INSULIN LISPRO 100 UNITS/ML SUBCUT SCH ×4 (06:12→21:00)
[2019-08-18] MEDS ORDERED: CHLORHEXIDINE GLUCONATE 4% EXTERNAL USE TOP SCH (07:30)
[2019-08-18 08:00] VITALS: BP 132/66
[2019-08-18] MEDS: DOCUSATE SODIUM 100MG CAPSULE PO SCH ×2 (08:44→17:00)
[2019-08-18] MEDS: MEROPENEM 500MG in NORMAL SALINE 50ML IV SCH ×2 (08:44→20:44)
[2019-08-18] MEDS: LOSARTAN POTASSIUM 50 MG TABLET PO SCH (08:44)
[2019-08-18] MEDS ORDERED: VANCOMYCIN 500 MG PREMIX 100 ML IV SCH (09:00)
[2019-08-18 12:00] VITALS: BP 104/48
[2019-08-18] MEDS ORDERED: TRANEXAMIC ACID 1,000 MG in SODIUM CHLORIDE 0.9% 100 ML IV NR (14:00)
[2019-08-18] MEDS ORDERED: BUPIVACAINE/EPINEPH/PF 0.25%/0.0005 10ML ONE ×2 (14:23→14:24)
[2019-08-18] MEDS ORDERED: GENTAMICIN SULF 40MG/ML 2ML VIAL ONE ×2 (14:23→17:09)
[2019-08-18] MEDS ORDERED: MORPHINE SULFATE/PF 1MG/ML 10ML AMP ONE (14:23)
[2019-08-18] MEDS ORDERED: BACITRACIN 50,000 UNITS/VIAL ONE ×2 (14:24→17:10)
[2019-08-18] MEDS ORDERED: VANCOMYCIN HCL 1 GM/VIAL ONE (14:24)
[2019-08-18] MEDS ORDERED: NEOSTIGMINE METHYLSULFATE 1MG/ML 10 ML VIAL ONE (15:23)
[2019-08-18] MEDS ORDERED: FENTANYL CITRATE/PF 50MCG/ML 2ML VIAL ONE ×2 (15:23→16:37)
[2019-08-18] MEDS ORDERED: PROPOFOL 200MG/20ML VIAL IV ONE (15:23)
[2019-08-18] MEDS ORDERED: EPHEDRINE SULFATE 50MG/ML VIAL ONE (15:24)
[2019-08-18] MEDS ORDERED: ONDANSETRON HCL 4MG/2ML INJ ONE (15:24)
[2019-08-18] MEDS ORDERED: METOCLOPRAMIDE HCL 10MG/2ML VIAL ONE (15:24)
[2019-08-18] MEDS ORDERED: PHENYLEPHRINE HCL 10 MG/ML 1ML (IV VIAL) IV ONE (15:24)
[2019-08-18] MEDS ORDERED: SODIUM CHLORIDE 0.9% 10ML VIAL ONE (15:24)
[2019-08-18] MEDS ORDERED: GLYCOPYRROLATE 0.2 MG/ML 2ML VIAL ONE (15:24)
[2019-08-18] MEDS ORDERED: LIDOCAINE HCL/PF 1% 10 MG/ML 5ML VIAL ONE (15:24)
[2019-08-18] MEDS ORDERED: MIDAZOLAM HCL 2 MG/2 ML VIAL ONE (15:24)
[2019-08-18] MEDS ORDERED: SUCCINYLCHOLINE CHLORIDE 200MG/10ML IV ONE (15:25)
[2019-08-18] MEDS ORDERED: ROCURONIUM BROMIDE 10MG/ML VIAL 5ML IV ONE (15:29)
[2019-08-18] MEDS ORDERED: ETOMIDATE 2MG/ML 10ML VIAL IV ONE (15:30)
[2019-08-18] MEDS ORDERED: ALBUMIN HUMAN 12.5G/250ML (5%) IV ONE (16:04)
[2019-08-18] MEDS ORDERED: MORPHINE SULFATE 2 MG/ML CPJ (NOT FOR IM USE) IV PRN (18:45)
[2019-08-18] MEDS ORDERED: ONDANSETRON HCL 4MG/2ML INJ IV PRN (18:45)
[2019-08-18] MEDS ORDERED: MEPERIDINE HCL/PF 25MG/ML CPJ IV PRN (18:45)
[2019-08-18] MEDS ORDERED: DIPHENHYDRAMINE INJ IV PRN (18:50)
[2019-08-18] MEDS ORDERED: HYDROMORPHONE PCA 10MG/50ML IV PRN (18:50)
[2019-08-18] MEDS ORDERED: NALOXONE INJ IV PRN (18:51)
[2019-08-18] MEDS ORDERED: ONDANSETRON INJ IV PRN (18:51)
[2019-08-18] MEDS ORDERED: ACETAMINOPHEN 325MG TABLET PO PRN (19:00)
[2019-08-18] MEDS ORDERED: MAGNESIUM HYDROXIDE 400MG/5ML 30ML UDC PO PRN (19:00)
[2019-08-18] MEDS ORDERED: SODIUM CHLORIDE 0.9% 1,000 ML IV ONE (19:00)
[2019-08-18] MEDS: HYDROMORPHONE HCL/PF 2MG/ML CPJ IV PRN ×2 (19:33→19:41)
[2019-08-18 20:00] VITALS: BP 112/56
[2019-08-19] VITALS: BP 108/48
[2019-08-19 04:00] VITALS: BP 120/51
[2019-08-19] MEDS: SODIUM CHLORIDE 0.9% INJ 3ML FLUSH IVF SCH ×3 (05:57→21:32)
[2019-08-19 07:13] LABS: BASOPHILS % 0.6 % (0.0-2.0); EOSINOPHILS % 1.3 % (0.0-5.0); HEMATOCRIT. 29.9 % (36.0-48.0); HEMOGLOBIN. 9.7 g/dL (12.0-16.0); MEAN CORPUSCULAR HEMOGLOBIN 29.8 pg (28.0-32.0); MEAN CORPUSCULAR VOLUME 91.9 fL (81.0-99.0); MEAN PLATELET VOLUME 7.3 fl (7.4-10.4); MONOCYTES % 11.5 % (2.0-8.0); NEUTROPHILS % 72.6 % (40.0-76.0); PLATELET 412 x1000/uL (130-400); RED BLOOD CELL COUNT 3.26 mill/uL (4.2-5.4); RED CELL DISTRIBUTION WIDTH 14.6 % (11.6-14.6)
[2019-08-19] MEDS: INSULIN LISPRO 100 UNITS/ML SUBCUT SCH ×4 (07:22→21:00)
[2019-08-19] MEDS: BLOOD SUGAR DIAGNOSTIC STRIP TEST SCH ×4 (07:22→21:32)
[2019-08-19 08:00] VITALS: BP_SYST 120; BP_SYST 125; BP_DIAS 48
[2019-08-19] MEDS: MEROPENEM 500MG in NORMAL SALINE 50ML IV SCH ×3 (08:34→20:14)
[2019-08-19] MEDS: DOCUSATE SODIUM 100MG CAPSULE PO SCH ×2 (08:34→17:00)
[2019-08-19] MEDS: LOSARTAN POTASSIUM 50 MG TABLET PO SCH (08:34)
[2019-08-19 12:00] VITALS: BP 113/48
[2019-08-19] MEDS: SODIUM CHLORIDE 0.9% 1,000 ML IV SCH (14:49)
[2019-08-19 16:00] VITALS: BP 116/39
[2019-08-19 20:00] VITALS: BP 127/52
[2019-08-20] VITALS: BP 107/47
[2019-08-20] MEDS: HYDROCODONE/ACETAMINOPHEN 5/325MG TABLET PO PRN ×5 (01:59→22:44)
[2019-08-20 04:00] VITALS: BP 124/71
[2019-08-20] MEDS: SODIUM CHLORIDE 0.9% INJ 3ML FLUSH IVF SCH ×3 (06:00→21:14)
[2019-08-20 07:20] LABS: BASOPHILS % 0.4 % (0.0-2.0); EOSINOPHILS % 3.1 % (0.0-5.0); HEMATOCRIT. 27.6 % (36.0-48.0); HEMOGLOBIN. 8.8 g/dL (12.0-16.0); LYMPHOCYTES % 21.9 % (20.0-50.0); MEAN CORPUSCULAR HEMOGLOBIN 29.1 pg (28.0-32.0); MEAN CORPUSCULAR VOLUME 91.6 fL (81.0-99.0); MEAN PLATELET VOLUME 7.7 fl (7.4-10.4); MONOCYTES % 10.9 % (2.0-8.0); NEUTROPHILS % 63.7 % (40.0-76.0); PLATELET 317 x1000/uL (130-400); RED BLOOD CELL COUNT 3.02 mill/uL (4.2-5.4); RED CELL DISTRIBUTION WIDTH 14.4 % (11.6-14.6)
[2019-08-20] MEDS: BLOOD SUGAR DIAGNOSTIC STRIP TEST SCH ×4 (07:39→20:03)
[2019-08-20] MEDS: INSULIN LISPRO 100 UNITS/ML SUBCUT SCH ×4 (07:50→20:03)
[2019-08-20] MEDS ORDERED: SODIUM BICARBONATE 4% (2.4MEQ) 5ML VIAL IV ONE (07:53)
[2019-08-20] MEDS ORDERED: LIDOCAINE HCL 1% 20ML VIAL (Pyxis) INJ ONE (07:54)
[2019-08-20 08:00] VITALS: BP 137/48
[2019-08-20] MEDS: LOSARTAN POTASSIUM 50 MG TABLET PO SCH (08:44)
[2019-08-20] MEDS: DOCUSATE SODIUM 100MG CAPSULE PO SCH ×2 (08:44→17:00)
[2019-08-20] MEDS: MEROPENEM 500MG in NORMAL SALINE 50ML IV SCH ×2 (09:08→20:15)
[2019-08-20 12:00] VITALS: BP 152/62
[2019-08-20] MEDS: SODIUM CHLORIDE 0.9% 1,000 ML IV SCH (12:03)
[2019-08-20] MEDS ORDERED: VANCOMYCIN 1 G PREMIX 200 ML IV NR (14:00)
[2019-08-20 16:00] VITALS: BP 138/35
[2019-08-20 20:00] VITALS: BP 137/49
[2019-08-21] MEDS: SODIUM CHLORIDE 0.9% INJ 3ML FLUSH IVF SCH (06:00)
[2019-08-21] MEDS: BLOOD SUGAR DIAGNOSTIC STRIP TEST SCH ×2 (07:34→12:37)
[2019-08-21] MEDS: INSULIN LISPRO 100 UNITS/ML SUBCUT SCH ×2 (07:56→13:01)
[2019-08-21 08:00] VITALS: BP 127/51
[2019-08-21] MEDS: DOCUSATE SODIUM 100MG CAPSULE PO SCH (09:33)
[2019-08-21] MEDS: LOSARTAN POTASSIUM 50 MG TABLET PO SCH (09:33)
[2019-08-21] MEDS: MEROPENEM 500MG in NORMAL SALINE 50ML IV SCH (09:34)
[2019-08-21] MEDS: HYDROCODONE/ACETAMINOPHEN 5/325MG TABLET PO PRN (10:36)
[2019-08-21 12:00] VITALS: BP 107/51
[2019-08-21 15:53] VITALS: BP 107/51
[2019-08-21 16:00] VITALS: BP_SYST 108; BP_SYST 115; BP_DIAS 52; BP_DIAS 62
[2019-08-21] MEDS ORDERED: CEFTRIAXONE 2 G in DEXTROSE 5% WATER 50 ML IV SCH (17:00)
[2019-08-21 17:06] VITALS: BP 108/52
[2019-08-21] MEDS ORDERED: VANCOMYCIN 750 MG PREMIX 150 ML IV SCH (18:00)
[2019-08-22] MEDS ORDERED: CEFTRIAXONE 2 G PREMIX 50 ML IV SCH (21:00)
== END 2019-08-21 17:27 | DRG 907 ==
LOC: ER 11:23 → 6EST 13:07 → EDBEDREQ 13:12 → ENRESERV 14:47
PROVIDERS: ADMIT Internal Medicine; ATTEND Internal Medicine
PROC: 0J9G0ZZ Drainage of Right Lower Arm Subcutaneous Tissue and Fascia, Open Approach (ICD-10-PCS; principal; 2019-08-18)
PROC: 0SP909Z Removal of Liner from Right Hip Joint, Open Approach (ICD-10-PCS; 2019-08-18)
PROC: 0SUA09Z Supplement Right Hip Joint, Acetabular Surface with Liner, Open Approach (ICD-10-PCS; 2019-08-18)
PROC: 0SRR0JZ Replacement of Right Hip Joint, Femoral Surface with Synthetic Substitute, Open Approach (ICD-10-PCS; 2019-08-18)
PROC: 0SPR0JZ Removal of Synthetic Substitute from Right Hip Joint, Femoral Surface, Open Approach (ICD-10-PCS; 2019-08-18)
PROC: 05HY33Z Insertion of Infusion Device into Upper Vein, Percutaneous Approach (ICD-10-PCS; 2019-08-20)
PROC: B54NZZA Ultrasonography of Left Upper Extremity Veins, Guidance (ICD-10-PCS; 2019-08-20)
PROC: B51NZZA Fluoroscopy of Left Upper Extremity Veins, Guidance (ICD-10-PCS; 2019-08-20)
DX: M96.840 Postprocedural hematoma of a musculoskeletal structure following a musculoskeletal system procedure (principal); N17.0 Acute kidney failure with tubular necrosis; L02.413 Cutaneous abscess of right upper limb; L03.113 Cellulitis of right upper limb; B95.62 Methicillin resistant Staphylococcus aureus infection as the cause of diseases classified elsewhere; E03.9 Hypothyroidism, unspecified; E78.00 Pure hypercholesterolemia, unspecified; I10 Essential (primary) hypertension; I25.10 Atherosclerotic heart disease of native coronary artery without angina pectoris; Z96.642 Presence of left artificial hip joint; E78.5 Hyperlipidemia, unspecified; Z96.653 Presence of artificial knee joint, bilateral; J45.909 Unspecified asthma, uncomplicated; M79.89 Other specified soft tissue disorders; E11.9 Type 2 diabetes mellitus without complications; F32.9 Major depressive disorder, single episode, unspecified; D64.9 Anemia, unspecified; F03.90 Unspecified dementia, unspecified severity, without behavioral disturbance, psychotic disturbance, mood disturbance, and anxiety; B19.20 Unspecified viral hepatitis C without hepatic coma; B96.1 Klebsiella pneumoniae [K. pneumoniae] as the cause of diseases classified elsewhere; B95.7 Other staphylococcus as the cause of diseases classified elsewhere; Y83.1 Surgical operation with implant of artificial internal device as the cause of abnormal reaction of the patient, or of later complication, without mention of misadventure at the time of the procedure; Y92.89 Other specified places as the place of occurrence of the external cause; Z95.0 Presence of cardiac pacemaker; Z85.3 Personal history of malignant neoplasm of breast; Z90.710 Acquired absence of both cervix and uterus; Z88.5 Allergy status to narcotic agent; Z88.0 Allergy status to penicillin; Z88.4 Allergy status to anesthetic agent; Z79.899 Other long term (current) drug therapy
CPT/HCPCS: 36415; 36573; 71045; 73080; 73501; 73502; 76937; 80048; 80053; 80202; 81003; 82962; 83605; 84145; 84484; 85025; 85651; 86140; 86850; 86900; 87070; 87075; 87077; 88305; 88311; 93005; 93970; 96365; 96367; 96372; 96375; 97110; 97116; 97162; 97166; 97530; 97535; 99285; C1725; C1776; C1893; J0171; J0330; J0696; J1170; J1200; J1580; J1815; J2185; J2250; J2270; J2274; J2370; J2405; J2704; J2710; J2765; J3010; J3370; J3490; J7030; J7050; J7060; P9041

== ENCOUNTER 2020-08-19 16:25 | Emergency (ER) | payer MEDICARE, MEDICAID ==
[~2020-08-19] VITALS: Ht 160 cm; Wt 50.0 kg
[~2020-08-19 16:25] MED LIST changes: +ALBU90AE INH; +AMOX1TAB15 MT; +APIX2.5T MT; +ASPI-1497 MT; +COR6 MT; +FURO-151 PO; +LOSA25TA3 MT; -LOSA50TA41 PO; -MONT10TA24 PO; +MONT10TA96 PO; -NALO25TA PO; +NALO25TA4 PO; -POTA20TA82 PO; +REV20 MT; -TRAM50TA PO
[2020-08-19 17:15] LABS: BASOPHILS % 0.8 % (0.0-2.0); EOSINOPHILS % 1.1 % (0.0-5.0); HEMOGLOBIN. 10.7 g/dL (12.0-16.0); LYMPHOCYTES % 20.3 % (20.0-50.0); MEAN CORPUSCULAR HEMOGLOBIN 24.4 pg (28.0-32.0); MEAN CORPUSCULAR VOLUME 77.3 fL (81.0-99.0); MEAN PLATELET VOLUME 8.5 fl (7.4-10.4); MONOCYTES % 5.4 % (2.0-8.0); NEUTROPHILS % 72.4 % (40.0-76.0); PLATELET 231 x1000/uL (130-400); RED CELL DISTRIBUTION WIDTH 16.6 % (11.6-14.6)
[2020-08-19 17:24] LABS: CHLORIDE 96 mEq/L (98-107)
[2020-08-19] MEDS ORDERED: FUROSEMIDE 20MG/2ML VIAL IVP NR (18:15)
[2020-08-20 02:00] VITALS: BP 111/51
== END 2020-08-20 02:19 | disposition short-term general hospital (02) ==
LOC: ER 16:25 → CANBEDREQ 23:31 → ER 08-20 02:19
DX: I11.0 Hypertensive heart disease with heart failure (principal); I50.9 Heart failure, unspecified; R13.10 Dysphagia, unspecified; E11.9 Type 2 diabetes mellitus without complications; Z03.818 Encounter for observation for suspected exposure to other biological agents ruled out; Z87.891 Personal history of nicotine dependence; Z95.1 Presence of aortocoronary bypass graft; Z95.810 Presence of automatic (implantable) cardiac defibrillator; Z88.5 Allergy status to narcotic agent; Z88.0 Allergy status to penicillin
CPT/HCPCS: 36415; 70450; 71045; 80053; 83605; 83690; 83880; 84484; 85025; 87426; 93005; 96374; 99285; J1940

== ENCOUNTER 2020-10-05 10:09 | Inpatient (IN) | payer MEDICARE, MEDICAID ==
[~2020-10-05] VITALS: Ht 162.6 cm; Wt 60.3 kg
[~2020-10-05 10:09] MED LIST changes: +MONT10TA32 PO; -MONT10TA96 PO; +SERT-422 PO; -SERT50TA12 PO
[2020-10-05] MEDS ORDERED: MORPHINE SULFATE 4 MG/ML CPJ (NOT FOR IM USE) IV STA (10:43)
[2020-10-05 11:24] LABS: BASOPHILS % 1.4 % (0.0-2.0); EOSINOPHILS % 1.6 % (0.0-5.0); HEMATOCRIT. 23.9 % (36.0-48.0); LYMPHOCYTES % 19.9 % (20.0-50.0); MEAN CORPUSCULAR HEMOGLOBIN 23.4 pg (28.0-32.0); MEAN CORPUSCULAR VOLUME 79.7 fL (81.0-99.0); MEAN PLATELET VOLUME 9.3 fl (7.4-10.4); NEUTROPHILS % 66.1 % (40.0-76.0); PLATELET 232 x1000/uL (130-400); RED BLOOD CELL COUNT 2.99 mill/uL (4.2-5.4); RED CELL DISTRIBUTION WIDTH 17.6 % (11.6-14.6)
[2020-10-05 11:25] LABS: CHLORIDE 105 mEq/L (98-107)
[2020-10-05] MEDS ORDERED: FUROSEMIDE 40MG/4ML VIAL IVP ONE (12:45)
[2020-10-05 23:05] VITALS: BP 138/84
[2020-10-06] VITALS (10 sets, daily range): BP systolic 90–132; BP diastolic 43–85
[2020-10-06] MEDS ORDERED: ACETAMINOPHEN 325MG TABLET PO PRN (00:15)
[2020-10-06] MEDS ORDERED: TRAMADOL 50MG TABLET PO PRN (00:15)
[2020-10-06] MEDS ORDERED: IPRATROPIUM/ALBUTEROL 0.5-3(2.5)MG/3ML NEB HHN PRN (00:30)
[2020-10-06] MEDS ORDERED: DEXTROSE 50% WATER 50ML SYRINGE IV PRN (00:30)
[2020-10-06] MEDS ORDERED: SERTRALINE HCL 50MG TABLET PO SCH ×2 (01:00→09:00)
[2020-10-06] MEDS: INSULIN LISPRO 100 UNITS/ML SUBCUT SCH ×3 (05:57→17:15)
[2020-10-06] MEDS: BLOOD SUGAR DIAGNOSTIC STRIP TEST SCH ×3 (05:57→16:45)
[2020-10-06] MEDS: SILDENAFIL CITRATE 20MG TABLET PO SCH ×2 (05:58→14:15)
[2020-10-06 06:06] LABS: BASOPHILS % 0.7 % (0.0-2.0); EOSINOPHILS % 1.9 % (0.0-5.0); HEMATOCRIT. 24.2 % (36.0-48.0); HEMOGLOBIN. 7.3 g/dL (12.0-16.0); LYMPHOCYTES % 22.5 % (20.0-50.0); MEAN CORPUSCULAR HEMOGLOBIN 23.6 pg (28.0-32.0); MEAN CORPUSCULAR VOLUME 77.8 fL (81.0-99.0); MEAN PLATELET VOLUME 8.5 fl (7.4-10.4); MONOCYTES % 9.6 % (2.0-8.0); NEUTROPHILS % 65.3 % (40.0-76.0); PLATELET 212 x1000/uL (130-400); RED BLOOD CELL COUNT 3.11 mill/uL (4.2-5.4); RED CELL DISTRIBUTION WIDTH 17.6 % (11.6-14.6)
[2020-10-06 06:14] LABS: CHLORIDE 105 mEq/L (98-107)
[2020-10-06 06:23] LABS: TOTAL IRON BINDING CAPACITY 498 ug/dL (250-450)
[2020-10-06] MEDS ORDERED: PANTOPRAZOLE 40MG DR TABLET PO SCH (06:45)
[2020-10-06 06:46] LABS: VITAMIN B12 SERUM 315 pg/mL (211-911)
[2020-10-06] MEDS: POTASSIUM CHLORIDE 20MEQ TABLET SR PO SCH ×2 (08:35→17:29)
[2020-10-06] MEDS ORDERED: AMLODIPINE 10MG TABLET PO SCH (09:00)
[2020-10-06] MEDS ORDERED: ASPIRIN 81MG EC TABLET PO SCH (09:00)
[2020-10-06] MEDS ORDERED: LOSARTAN POTASSIUM 25 MG TABLET PO SCH (09:00)
[2020-10-06] MEDS ORDERED: LEVETIRACETAM 500MG TABLET PO SCH (09:00)
[2020-10-06] MEDS ORDERED: SPIRONOLACTONE 25MG TABLET PO SCH (09:00)
[2020-10-06] MEDS ORDERED: CARVEDILOL 6.25 MG TABLET PO SCH (09:00)
[2020-10-06] MEDS ORDERED: APIXABAN 2.5 MG TABLET PO SCH (09:00)
[2020-10-06] MEDS ORDERED: FUROSEMIDE 40MG TABLET PO SCH (09:00)
[2020-10-06] MEDS ORDERED: POTASSIUM CHLORIDE 20MEQ TABLET SR PO SCH (09:15)
[2020-10-06 09:55] LABS: BG BASE EXCESS 3.7 mmol/L (-2.0-2.0); BG CARBOXYHEMOGLOBIN 0.6 % (0.5-1.5); BG FRACTION INSPIRED OXYGEN 32; BG HCO3 ACT 28.7 mmol/L (22.0-26.0); BG METHEMOGLOBIN 0.2 % (0.0-1.5); BG OXYHEMOGLOBIN 97.2 % (94.0-97.0); BG PCO2 46.1 mmHg (35.0-45.0); BG PH 7.412 (7.350-7.450); BG PO2 106.5 mmHg (75.0-100.0); BG SAMPLE SITE LEFT RADIAL; BG TOTAL HEMOGLOBIN 7.6 g/dL (12.0-18.0); BG VENT MODE NASAL CANNULA
[2020-10-06 11:08] LABS: INR 1.2; PROTHROMBIN TIME 12.3 sec (9.6-11.0)
[2020-10-06] MEDS ORDERED: LACTULOSE 20G/30ML UDC PO NR (16:45)
[2020-10-06] MEDS ORDERED: ASCORBIC ACID 500 MG TABLET PO SCH (16:45)
[2020-10-06] MEDS ORDERED: BISACODYL 10MG SUPP PR SCH (16:45)
[2020-10-06] MEDS ORDERED: FUROSEMIDE 40MG/4ML VIAL IVP SCH (17:00)
[2020-10-06] MEDS ORDERED: FERROUS SULFATE 325MG TABLET PO SCH (17:15)
[2020-10-06 17:30] LABS: FOLIC ACID (FOLATE) SERUM 18.8 ng/mL (>5.38)
[2020-10-06 20:03] LABS: HEMATOCRIT 30.5 % (36.0-48.0); HEMOGLOBIN 9.4 g/dL (12.0-16.0)
[2020-10-06] MEDS ORDERED: LINAGLIPTIN 5MG TABLET PO SCH (21:00)
[2020-10-06] MEDS ORDERED: MONTELUKAST SODIUM 10MG TABLET PO SCH (21:00)
[2020-10-06] MEDS ORDERED: DOCUSATE SODIUM 100MG CAPSULE PO PRN (21:00)
[2020-10-06] MEDS ORDERED: ATORVASTATIN CALCIUM 20MG TABLET PO SCH (21:00)
[2020-10-07] MEDS ORDERED: ERGOCALCIFEROL 50000UNITS CAPSULE PO SCH (09:00)
== END 2020-10-06 19:25 | disposition short-term general hospital (02) | DRG 291 ==
LOC: ER 10:09 → 5WST 12:41 → EDBEDREQ 12:45 → EDBEDREQTM 12:45 → ENRESERV 21:41
PROVIDERS: ADMIT Internal Medicine; ATTEND Internal Medicine
PROC: 30233N1 Transfusion of Nonautologous Red Blood Cells into Peripheral Vein, Percutaneous Approach (ICD-10-PCS; principal; 2020-10-06)
DX: I13.0 Hypertensive heart and chronic kidney disease with heart failure and stage 1 through stage 4 chronic kidney disease, or unspecified chronic kidney disease (principal); I50.43 Acute on chronic combined systolic (congestive) and diastolic (congestive) heart failure; I42.9 Cardiomyopathy, unspecified; D50.9 Iron deficiency anemia, unspecified; B19.20 Unspecified viral hepatitis C without hepatic coma; E11.22 Type 2 diabetes mellitus with diabetic chronic kidney disease; E78.5 Hyperlipidemia, unspecified; E87.6 Hypokalemia; F41.1 Generalized anxiety disorder; I25.10 Atherosclerotic heart disease of native coronary artery without angina pectoris; Z96.642 Presence of left artificial hip joint; I27.20 Pulmonary hypertension, unspecified; F41.8 Other specified anxiety disorders; R16.0 Hepatomegaly, not elsewhere classified; G89.4 Chronic pain syndrome; I34.0 Nonrheumatic mitral (valve) insufficiency; Z20.822 Contact with and (suspected) exposure to COVID-19; R07.89 Other chest pain; K59.00 Constipation, unspecified; N18.9 Chronic kidney disease, unspecified; R13.10 Dysphagia, unspecified; Z79.01 Long term (current) use of anticoagulants; Z79.84 Long term (current) use of oral hypoglycemic drugs; Z79.899 Other long term (current) drug therapy; Z85.3 Personal history of malignant neoplasm of breast; Z90.49 Acquired absence of other specified parts of digestive tract; Z92.21 Personal history of antineoplastic chemotherapy; Z95.810 Presence of automatic (implantable) cardiac defibrillator; Z88.5 Allergy status to narcotic agent; Z88.8 Allergy status to other drugs, medicaments and biological substances; Z88.0 Allergy status to penicillin; R06.03 Acute respiratory distress
CPT/HCPCS: 36415; 36600; 71045; 80048; 80053; 82375; 82607; 82728; 82746; 82805; 82962; 83036; 83540; 83550; 83880; 84484; 85014; 85018; 85025; 85044; 86850; 86900; 86920; 87426; 93005; 99285; J1940; J2270; P9016